=== PATIENT | female | born 1990 | race Caucasian/White ===

== ENCOUNTER 2018-02-18 10:59 | Day surgery (SDC) | payer OTHER, SELFPAY ==
[2018-02-18 11:19] LABS: Internal QC Validated? YES +Cl - CLEAR BKGD
[2018-02-18 11:23] LABS: Pregnancy, Urine Negative Negative
[2018-02-18 11:25] VITALS: BP 108/90; PULSE 86; RESP 16; TEMP 37.1; O2SAT 100; BMI 45.4
--- NOTE | 2018-02-18 13:44 | PCM.OP.BLANK ---
Operative Report Date of Procedure: 02/18/18 Preoperative diagnosis: left Carpal tunnel syndrome Postoperative diagnosis: Same Title of operation: ,left Open carpal tunnel release Surgeon: Dr. Kevin Gregory Anesthesia: Local w mac Indications for surgery: Patient seen and evaluated in the office. Diagnosed with carpal tunnel syndrome. They have failed adequate nonoperative treatment. Due to persistent symptoms they wish to proceed with carpal tunnel release surgery appropriate informed consent was obtained and signed. Details of procedure: Patient was taken to the OR and transferred to the OR table. Appropriate timeouts were performed. Well-padded tourniquet was applied to the operative upper extremity proximally. Area was prepped with alcohol. IV sedation supplied by anesthesia staff. local anesthetic was administered using 9 cc of 2% lidocaine plain. Operative extremity was prepped padded and draped in usual orthopedic sterile fashion for the procedure. Limb was exsanguinated. Tourniquet applied to 250 mmHg. Three centimeter incision was made over the palm. Carefully taken through skin, subcutaneous tissue, down onto the transverse carpal ligament. Transverse carpal ligament was opened at the midportion with a knife. Elevator was carefully placed underneath the transverse carpal ligament in a distal direction. I dissected down onto that with a knife. Elevator was then placed in a proximal direction, again directly underneath the transverse carpal ligament. I dissected down on that with a knife. Scissors were used at the proximal extent placed under direct visualization. This fully released the proximal extent of the transverse carpal ligament. At this point my small finger was placed proximally and distally to assure complete release of the transverse carpal ligament over the median nerve. FPL tendon was noted. No significant abnormalities were noted at the region of the carpal canal. Tourniquet was let down. Bleeding controlled with the Bovie. Wound thoroughly irrigated. No undue bleeding noted. Skin edges were reapproximated with a 5-0 nylon. Sterile bandage was applied. Patient was awoken from the anesthetic. Transferred to the room bed. To recovery room in satisfactory condition. Patient will be discharged home. Ice and elevation recommended. Pain medication as needed. Follow-up in the office next week as scheduled. This note was generated with Wisecam dictation software. It may contain incorrect words, spelling, and punctuation that were not noted in checking the note before signing.
[2018-02-18 13:50] VITALS: BP 108/90; BP 128/74; PULSE 96; RESP 18; TEMP 36.6; O2SAT 95
[2018-02-18 13:55] VITALS: BP 108/90; BP 131/64; PULSE 90; RESP 18; O2SAT 96
[2018-02-18 14:00] VITALS: BP 108/90; BP 123/67; PULSE 83; RESP 18; O2SAT 96
[2018-02-18 14:05] VITALS: BP 108/90; BP 132/77; PULSE 79; RESP 18; TEMP 36.5; O2SAT 96
[2018-02-18 14:20] VITALS: BP 108/90
== END 2018-02-18 14:50 | disposition home or self-care (01) ==
LOC: SDC 11:00 → AC 11:03
PROVIDERS: Visit Provider Orthopaedic Surgery
PROC: (CPT 64721; principal; 2018-02-18 12:15)
DX: G56.02 Carpal tunnel syndrome, left upper limb (principal); E66.9 Obesity, unspecified; Z68.42 Body mass index [BMI] 45.0-49.9, adult; Z79.891 Long term (current) use of opiate analgesic
CPT/HCPCS: 01810; 64721; 81025; J7120

== ENCOUNTER → 2019-07-03 11:39 | Outpatient (CLI) | payer OTHER, SELFPAY ==
[2019-06-07 16:29] VITALS: BMI 47.9
== END ==
PROVIDERS: Visit Provider Obstetrics & Gynecology
DX: Z12.4 Encounter for screening for malignant neoplasm of cervix (principal)

== ENCOUNTER → 2020-06-13 09:04 | Outpatient (CLI) | payer OTHER, SELFPAY ==
[2020-06-13 08:58] VITALS: BMI 47.9
[2020-06-13 09:59] LABS: HIV - WCH Non-Reactive (Nonreactive)
[2020-06-14 20:07] LABS: HCV Quant. RNA PCR HCV Not Detected IU/mL (.)
[2020-06-14 22:45] LABS: HSV 2 IgG < 0.91 index (0.00-0.90)
[2020-06-18 03:06] LABS: Chlamydia By Nucleic Acid AMP Negative (Negative)
[2020-06-18 09:41] LABS: Gonococcus By Nucleic Acid AMP Negative (Negative)
[2020-06-20 04:30] LABS: Rapid Plasmin Reagin (RPR) NONREACTIVE (NONREACTIVE)
== END ==
PROVIDERS: Referring Provider Obstetrics & Gynecology; Visit Provider Obstetrics & Gynecology
DX: Z11.3 Encounter for screening for infections with a predominantly sexual mode of transmission (principal)
CPT/HCPCS: 36415; 86592; 86695; 86696; 86703; 87491; 87522; 87591

== ENCOUNTER → 2020-06-21 06:16 | Outpatient (CLI) | payer OTHER, SELFPAY ==
[2020-06-13 08:58] VITALS: BMI 47.9
[2020-06-21 09:14] LABS: Vitamin D,25 Hydroxy 36.5 ng/mL
== END ==
PROVIDERS: Referring Provider Obstetrics & Gynecology; Visit Provider Obstetrics & Gynecology
DX: Z13.1 Encounter for screening for diabetes mellitus (principal); Z13.220 Encounter for screening for lipoid disorders; Z13.21 Encounter for screening for nutritional disorder
CPT/HCPCS: 36415; 82306

== ENCOUNTER → 2021-07-11 07:30 | Outpatient (CLI) | payer OTHER, SELFPAY ==
--- NOTE | 2021-07-11 07:31 | US_ITS ---
STUDY: ULTRASOUND TRANSVAGINAL CLINICAL: Female, 30 years old. IUD strings lost TECHNIQUE: Transvaginal COMPARISON: 01/09/2016 FINDINGS: Normal uterine size measuring 7.9 x 4.6 x 3.5 cm in maximal craniocaudal dimension. There are no myometrial masses. IUD within the fundal endometrial canal. Normal endometrial thickness measuring 4-5 mm. There are no endometrial masses, and there is no fluid in the endometrial cavity. Normal uterine cervix. Normal right ovary, measuring 3.5 x 3.2 x 2.7 cm. There are multiple follicles without a dominant cyst. Normal left ovary, measuring 2.9 x 2.7 x 2.1 cm. There are multiple follicles without a dominant cyst. There is no free fluid in the pelvis. US/Pelvic (Non ) IMPRESSION: IUD within the endometrial canal. Electronically Signed: Hany Lomeli MD (Brooks) at 9:18 EDT , Service support ,
--- NOTE | 2021-07-11 07:31 | US_ITS ---
STUDY: ULTRASOUND TRANSVAGINAL CLINICAL: Female, 30 years old. IUD strings lost TECHNIQUE: Transvaginal COMPARISON: 01/09/2016 FINDINGS: Normal uterine size measuring 7.9 x 4.6 x 3.5 cm in maximal craniocaudal dimension. There are no myometrial masses. IUD within the fundal endometrial canal. Normal endometrial thickness measuring 4-5 mm. There are no endometrial masses, and there is no fluid in the endometrial cavity. Normal uterine cervix. Normal right ovary, measuring 3.5 x 3.2 x 2.7 cm. There are multiple follicles without a dominant cyst. Normal left ovary, measuring 2.9 x 2.7 x 2.1 cm. There are multiple follicles without a dominant cyst. There is no free fluid in the pelvis. US/Transvaginal Non- IMPRESSION: IUD within the endometrial canal. Electronically Signed: Hany Lomeli MD (Brooks) at 9:18 EDT , Service support ,
== END ==
PROVIDERS: Referring Provider Obstetrics & Gynecology; Visit Provider Obstetrics & Gynecology
DX: T83.32XA Displacement of intrauterine contraceptive device, initial encounter (principal); Y83.8 Other surgical procedures as the cause of abnormal reaction of the patient, or of later complication, without mention of misadventure at the time of the procedure; Y92.9 Unspecified place or not applicable
CPT/HCPCS: 76830; 76856

== ENCOUNTER 2022-02-24 12:31 | Day surgery (SDC) | payer OTHER, SELFPAY ==
[2022-02-24] VITALS (7 sets, daily range): BP systolic 116–138; BP diastolic 69–89; PULSE 78–96; RESP 16–18; TEMP 36.1–37.3; O2SAT 96–100; BMI 41.7
[2022-02-24 13:33] LABS: Hematocrit 37.9 % (37-47); Hemoglobin 12.6 g/dL (12.0-15.0); Mean Corp Hgb Conc 33.2 g/dL (32-36); Mean Corpuscular Volume 84.2 fL (81-99); Mean Platelet Vol. 8.8 fl (6.2-12.0); Platelet Count 237 K/mm3 (150-450); RBC Distribution Width CV 13.2 % (11.6-14.6); RBC Distribution Width SD 40.8 fl (35.1-43.9); White Blood Count 6.8 K/mm3 (4.4-11.0)
[2022-02-24 13:36] LABS: Internal QC Validated? YES +Cl - CLEAR BKGD; Pregnancy, Urine Negative Negative
[2022-02-24] MEDS: Lactated Ringers 1,000 ML 15 ML IV (13:38)
--- NOTE | 2022-02-24 14:39 | PCM.HP.BLA ---
History and Physical Date of Admission: 02/24/22 MR#:[id number]:[id number]: SVEN DAVIS #:[id number]:1990 Provider: ROSALIO Martinez/Sex: 31/F [facility] Int[place] Vital Signs 02/11/22 12:54 Height 5 ft 6 in Weight: 301 lb BMI 48.6 BP 120/82 H Intake Visit Reasons: MIRENA REMOVAL Chief Complaint: mirena removal only Crusher Wet [place] Mica Required: No Is patient in pain?: No Allergies No Known Allergies Allergy (Verified 06/13/20 08:17) Medications vitamin#30 30 mg iron-10 mg iron-folic acid 1 mg-omg3 capsule cap PO 02/11/22 [History Confirmed 02/11/22] Is last menstrual period known: No Post menopausal: No Patient : No : No [facility] Medical History Breast abscess Carpal tunnel syndrome MRSA (methicillin resistant Staphylococcus aureus) Surgical History History of incision and drainage Family History Unknown Cancer Father Cancer testicular germ cell Myocardial infarction Social History Smoking Status: Never smoker alcohol intake: never substance use type: does not use caffeine: Yes seatbelt use: always do you feel safe at home: Yes additional social history: [facility]- to [place] HPI MIRENA REMOVAL Details: SVEN DAVIS is a 31 year old who presents for IUD removal. Wants Pregancy History 0 Elective abortions Hx Para Spontaneous abortions Hx # Term Pregnancies Ectopic pregnancies Hx # Pregnancies Multiple births # of living children ROS Const Constitutional: Reports system reviewed and no additional complaints, except as documented Eyes Eyes: Reports system reviewed and no additional complaints, except as documented GI GI: Denies abdominal pain or change in bowel habits : Reports as per HPI Exam Const General: cooperative and no acute distress Orientation: oriented x3 External Female Exam: normal external appearance and normal appearance of the urethra Urethra: normal appearance of the urethra Speculum Exam - Vagina: normal appearance of the vagina Speculum Exam - Cervix: normal appearance of the cervix Office Procedures IUD Removal IUD Removal Details: Sign out documentation: Completed Procedure: Speculum placed in vagina, IUD string was not visualized. The cervix was cleansed with betadine and grasped with a single-toothed tenaculum and using a long Ksenia forceps device, removal was attempted with multiple passes without success. The patient tolerated well. We will plan hysteroscopic removal in the OR. Coding Level of Care Code Attention Rubber Heel And Sole Press Tender Diagnoses IUD strings lost T83.32XA Assessment and Plan Assessment and Plan (1) IUD strings lost: Status: Acute Plan - Dr. Raven Cardona, DO: ultrasound confirmed the IUD in place but will need hysteroscopic removal. plan for hysteroscopy soon. will call patient when set up in the OR. Plan - Maya Joyner TEXTILE CONVERSION MANAGER, TEXTILE CONVERSION MANAGER-C: as above Plan Details Other Orders: Orders: IUD Removal Today Z30.432
--- NOTE | 2022-02-24 14:40 | PCM.DC ---
Discharge Instructions Diet Discharge Diet: No restrictions Activity Discharge Activity: Return to Normal Activity, May Shower and May Take a Tub Bath (after 1 week) May resume sexual activity in: 1-2 weeks Weight Bearing Status: Weight bearing as tolerated Lifting Restrictions: none Dressing / Incision Call your doctor if you observe: Fever of 101 or Higher, Using more than 1 pad per hour, Shortness of breath and Uncontrolled pain Follow Up Care Please Follow Up With: Raven Cardona DO When: Call [phone] to schedule appointment. Test Results: Test results from this visit will be discussed in further detail at your follow-up appointment, if applicable. Discharge Plan Admission Primary Reason for Your Visit: hysteroscopy Attending Provider: Raven Cardona Primary Care Provider: Care Idania Purcell Primary Discharge Orders/Prescriptions Prescriptions: New ibuprofen 800 mg tablet 800 mg PO Q8H PRN (Reason: pain) 7 Days Qty: 20 RF: 0 oxycodone-acetaminophen [Percocet] 5-325 mg tablet 1 tab PO Q6H PRN (Reason: pain) 3 Days Qty: 5 RF: 0 ibuprofen 600 mg tablet 600 mg PO Q6H PRN (Reason: pain) 7 Days Qty: 28 RF: 0 Continued PNV #[id number] 30 mg iron-10 mg iron-1 mg capsule 1 cap PO DAILY RF: 0 Referrals / Follow Up: Care Physician,Idania Primary [Primary Care Provider] - Disposition Disposition (needs filled in before D/C Order can be placed): Home, Self Care
[2022-02-24] MEDS: Lidocaine 1% (50 ml mdv) 50 ML Vial (14:58)
--- NOTE | 2022-02-24 15:26 | PCM.OPRPT ---
Problems Associated Problem List Diagnoses (1) IUD strings lost: Report of Operation Date of Procedure: 02/24/22 Pre-Operative Diagnosis: retained IUD, unable to remove in office Post-Operative Diagnosis: retained IUD, unable to remove in office Surgery/Procedure Performed:: hysteroscopy, IUD removal Description of Surgical Findings:: IUD noted in the right upper fundal region of the uterus, non-embedded. Surgeon: Raven Cardona supervisor paper testing: None Type of Anesthesia: MAC/Supplemental/Local Specimen's removed: IUD Drains: none Estimated Blood Loss (mL): none Description of Procedure: Patient was prepped and draped in a normal sterile fashion under MAC anesthesia. A weighted speculum was placed in the vagina and the anterior lip of the cervix was grasped with a single-tooth tenaculum. A paracervical block was placed with 1% lidocaine. Cervix was progressively dilated to allow passage of a 5 mm hysteroscope. The lining was fully visualized and noted to have the IUD up at the left fundal region. The strings were found and with the use of the hysteroscopic instruments, the strings were grasped and the device removed without difficulty. All instruments were removed from the vagina and excellent hemostasis was noted. Patient was awoken and taken to recovery in stable condition. Complications none Admit VTE Documentation VTE Present on Admission: Yes VTE Mechan Device Prophylaxis: SCD's VTE Pharm Prophylaxis ordered?: No Reason prophylaxis not ordered:: Treatment Not Indicated Multi Select Codes Urinary/Genital Urinary/Genital CPT Codes: 41778 Hysteroscopic removal of FB
== END 2022-02-24 16:03 | disposition home or self-care (01) ==
LOC: SDC 12:33 → AC 12:40
PROVIDERS: Referring Provider Obstetrics & Gynecology; Visit Provider Obstetrics & Gynecology
PROC: 0UDB8ZZ Extraction of Endometrium, Via Natural or Artificial Opening Endoscopic (ICD-10-PCS; CPT 58558; principal; 2022-02-24 14:30)
DX: Z30.432 Encounter for removal of intrauterine contraceptive device (principal); T83.89XA Other specified complication of genitourinary prosthetic devices, implants and grafts, initial encounter; Y83.8 Other surgical procedures as the cause of abnormal reaction of the patient, or of later complication, without mention of misadventure at the time of the procedure
CPT/HCPCS: 58301; 81025; 85027; J7120; J2405

== ENCOUNTER → 2022-08-15 | Outpatient (CLI) | payer OTHER, SELFPAY ==
[2022-08-15 11:27] LABS: hCG Titer Quant., Serum 1461 mIU/mL (1-3)
== END | disposition home or self-care (01) ==
LOC: LAB 10:10
PROVIDERS: Visit Provider Obstetrics & Gynecology
DX: N91.2 Amenorrhea, unspecified (principal)
CPT/HCPCS: 36415; 84702

== ENCOUNTER → 2022-09-23 | Outpatient (CLI) | payer OTHER, SELFPAY ==
[2022-09-25 06:08] LABS: Chlamydia By Nucleic Acid AMP Negative (Negative)
[2022-09-25 10:43] LABS: Gonococcus By Nucleic Acid AMP Negative (Negative)
== END | disposition home or self-care (01) ==
LOC: LABSPEC 12:17
PROVIDERS: Visit Provider Obstetrics & Gynecology
DX: Z34.90 Encounter for supervision of normal pregnancy, unspecified, unspecified trimester (principal)
CPT/HCPCS: 87086; 87088; 87491; 87591

== ENCOUNTER → 2022-10-02 | Outpatient (CLI) | payer OTHER, SELFPAY ==
[2022-10-02 09:11] LABS: Absolute Lymphocyte Count 1.61 X10^3/uL (0.83-4.51); Absolute Neutrophil Count 5.2 X10^3/uL (2.0-7.7); Basophil# 0.02 X10^3/uL; Basophil% 0.3 % (0-1); Eosinophil# 0.06 X10^3/uL; Eosinophils% 0.8 % (0-5); Hematocrit 32.3 % (37-47); Hemoglobin 10.6 g/dL (12.0-15.0); Lymphocyte # 1.61 X10^3/ul (0.83-4.51); Lymphocyte % 22.4 % (19-41); Mean Corp Hgb Conc 32.8 g/dL (32-36); Mean Corpuscular Hgb 27.6 pg (27.0-32.0); Mean Corpuscular Volume 84.1 fL (81-99); Mean Platelet Vol. 8.9 fl (6.2-12.0); Monocyte# 0.29 X10^3/uL; NRBC Flagged by Analyzer 0 % (0-5); Neutrophil # 5.17 X10^3/uL (2.7-7.7); Neutrophil % 71.9 % (47-70); Platelet Count 210 K/mm3 (150-450); RBC Distribution Width SD 42.7 fl (35.1-43.9); Red Blood Count 3.84 M/mm3 (4.2-5.4); White Blood Count 7.2 K/mm3 (4.4-11.0)
[2022-10-02 09:36] LABS: Glucose Challenge Gest 1H 50g 118 mg/dL (70-140)
[2022-10-02 10:16] LABS: HIV - WCH Non-Reactive (Nonreactive); Hepatitis B Surface Antigen Non-Reactive (Nonreactive); Hepatitis C Antibody Non-Reactive (Nonreactive); Rubella IgG Reactive (Nonreactive); Syphilis Antibodies Non-reactive
== END | disposition home or self-care (01) ==
LOC: LAB 08:32
PROVIDERS: Referring Provider Obstetrics & Gynecology; Visit Provider Obstetrics & Gynecology
DX: Z34.91 Encounter for supervision of normal pregnancy, unspecified, first trimester (principal); Z3A.10 10 weeks gestation of pregnancy
CPT/HCPCS: 36415; 82950; 85025; 86703; 86762; 86780; 86803; 86850; 86900; 86901; 87340

== ENCOUNTER → 2022-10-20 | Outpatient (CLI) | payer OTHER, SELFPAY ==
--- NOTE | 2022-10-20 11:20 | RAD_ITS ---
STUDY: X-RAY - LEFT KNEE REASON FOR EXAM: Female, 32 years old. Left knee pain TECHNIQUE: 4 view(s) of the knee. COMPARISON: None. FINDINGS: Normal visualized distal femur. Normal visualized proximal tibia and fibula. Normal proximal tibiofibular articulation. Normal medial femorotibial compartment. Normal lateral femorotibial compartment. Normal patellofemoral articulation. The soft tissue structures are unremarkable. RAD/Knee 4 or More Views IMPRESSION: Normal x-ray examination of the knee. Electronically Signed: Jez Christianson MD at 12:05 EST ,
== END | disposition home or self-care (01) ==
LOC: MTRAD 11:18
PROVIDERS: Referring Provider Physician Assistant Surgical; Visit Provider Physician Assistant Surgical
DX: S86.912A Strain of unspecified muscle(s) and tendon(s) at lower leg level, left leg, initial encounter (principal); X58.XXXA Exposure to other specified factors, initial encounter
CPT/HCPCS: 73564

== ENCOUNTER → 2022-11-19 | Outpatient (CLI) | payer OTHER, SELFPAY ==
--- NOTE | 2022-11-19 15:21 | US_ITS ---
STUDY: SECOND AND THIRD TRIMESTER OBSTETRICAL ULTRASOUND REASON FOR EXAM: Female, 32 years old Anatomy scan LMP: 07/09/2022. TECHNIQUE: Transabdominal and Transvaginal TECHNICAL QUALITY: Adequate. PRIOR ULTRASOUND: None. FINDINGS: There is a single intrauterine fetus. The fetus is in a cephalic presentation. There is demonstrated cardiac activity with a heart rate of 136 bpm. There is a normal amniotic fluid volume. The largest amniotic fluid pocket measures 3.9 cm x 4.6 cm. The amniotic fluid index (ISATU) is within normal limits. The placenta is anterior in location and is not low lying. There are Grade 1 placental changes. The cervix measures 3.7 cm in length. The bilateral adnexal regions are normal. BIOMETRY: BPD: 4.19 cm: 18 weeks, 5 days HC: 15.68 cm: 18 weeks, 4 days AC: 14.79 cm: 20 weeks, 0 days FL: 2.98 cm: 19 weeks, 1 days CI: 81.3 FL/BPD: 71.11 FL/HC: FL/AC: 20.16 HC/AC: 1.06 age by current US: 18 weeks, 4 days. BE by current US: 04/18/2023. Estimated weight: 300 grams, +/- 45 grams, 78 %. Age by LMP: 19 weeks, 0 days. BE by LMP: 04/15/2023. ANATOMY: Gender: Female Cranium: Normal lateral ventricles. Normal choroid plexus. Normal cerebellum. Normal cisterna magna. Normal face, nose and lips. Chest: Normal 4-chamber heart. Abdomen/Pelvis: Normal diaphragm. Normal stomach. Normal abdominal wall. Normal cord insertion. Normal 3 vessel cord. Normal kidneys. Normal bladder. Spine: Normal cervical spine. Normal thoracic spine. Normal lumbar spine. Normal sacrum. Extremities: Normal bilateral upper extremities. Normal bilateral lower extremities. US/OB Anatomy Scan IMPRESSION: Single live intrauterine gestation with a mean gestational age of 18 weeks and 4 days. Electronically Signed: Jez Christianson MD at 15:19 EST ,
== END | disposition home or self-care (01) ==
LOC: OPUS 15:18
PROVIDERS: Visit Provider Nurse Practitioner Women's Health
DX: Z34.90 Encounter for supervision of normal pregnancy, unspecified, unspecified trimester (principal)
CPT/HCPCS: 76805; 76817

== ENCOUNTER → 2023-01-21 | Outpatient (CLI) | payer OTHER, SELFPAY ==
[2023-01-21 11:11] LABS: Absolute Lymphocyte Count 1.41 X10^3/uL (0.83-4.51); Absolute Neutrophil Count 6.1 X10^3/uL (2.0-7.7); Basophil# 0.03 X10^3/uL; Basophil% 0.4 % (0-1); Eosinophil# 0.03 X10^3/uL; Eosinophils% 0.4 % (0-5); Hematocrit 30.2 % (37-47); Hemoglobin 9.2 g/dL (12.0-15.0); Lymphocyte # 1.41 X10^3/ul (0.83-4.51); Lymphocyte % 17.7 % (19-41); Mean Corp Hgb Conc 30.5 g/dL (32-36); Mean Corpuscular Hgb 26.2 pg (27.0-32.0); Mean Platelet Vol. 9.2 fl (6.2-12.0); Monocyte# 0.33 X10^3/uL; Monocyte% 4.2 % (0-10); NRBC Flagged by Analyzer 0 % (0-5); Neutrophil # 6.09 X10^3/uL (2.7-7.7); Neutrophil % 76.5 % (47-70); Platelet Count 172 K/mm3 (150-450); RBC Distribution Width CV 15.2 % (11.6-14.6); RBC Distribution Width SD 47.4 fl (35.1-43.9); Red Blood Count 3.51 M/mm3 (4.2-5.4)
[2023-01-21 11:34] LABS: Glucose Challenge Gest 1H 50g 112 mg/dL (70-140)
[2023-01-21 12:00] LABS: HIV - WCH Non-Reactive (Nonreactive); Syphilis Antibodies Non-reactive
== END | disposition home or self-care (01) ==
LOC: LAB 10:42
PROVIDERS: Referring Provider Obstetrics & Gynecology; Visit Provider Obstetrics & Gynecology
DX: O09.90 Supervision of high risk pregnancy, unspecified, unspecified trimester (principal)
CPT/HCPCS: 36415; 82950; 85025; 86703; 86780

== ENCOUNTER → 2023-01-22 | Outpatient (CLI) | payer OTHER, SELFPAY ==
[2023-01-22 10:36] LABS: ALB/GLOB Ratio 0.7 RATIO (0.9-2.4); AST(SGOT) 14 U/L (15-37); Alanine Aminotransfer ALT/SGPT 24 U/L (13-56); Albumin, Serum 2.7 g/dL (3.2-5.0); Alkaline Phosphatase 82 U/L (45-117); Anion Gap 3 (5-15); BUN 7 mg/dL (7-18); BUN/Creat Ratio 11.7 RATIO (10-20); Chloride 108 mmol/L (98-107); EST Glomerular Filtration Rate 122 mL/min (>60); Est Glom Filt Rate - Afr Amer 148 mL/min (>60); Globulin 3.8 g/dL (2.2-4.2); Glucose 104 mg/dL (74-106); Potassium 3.4 mmol/L (3.5-5.1); Protein, Total 6.5 g/dL (6.4-8.2); Sodium Level 136 mmol/L (136-145)
[2023-01-22 12:27] LABS: Ferritin 26 ng/mL (8-252); Iron 56 ug/dL (50-170); Iron Binding Capacity,Total 470 ug/dL (250-450); PERCENT IRON SATURATION 11.9 % (15.0-55.0)
[2023-01-22 15:00] LABS: Protein:Creat Ratio 205 mg/g CRE (0-200)
== END | disposition home or self-care (01) ==
PROVIDERS: Referring Provider Advanced Practice Midwife; Visit Provider Advanced Practice Midwife
DX: O10.919 Unspecified pre-existing hypertension complicating pregnancy, unspecified trimester (principal); D64.9 Anemia, unspecified; O99.011 Anemia complicating pregnancy, first trimester
CPT/HCPCS: 36415; 80053; 82570; 82728; 82746; 83540; 83550; 84156

== ENCOUNTER → 2023-01-27 | Outpatient (CLI) | payer OTHER, SELFPAY ==
[2023-01-27 17:53] LABS: Ferritin 30 ng/mL (8-252); Iron 43 ug/dL (50-170); Iron Binding Capacity,Total 505 ug/dL (250-450); PERCENT IRON SATURATION 8.5 % (15.0-55.0)
[2023-01-28 08:52] LABS: Vitamin B12 251 pg/mL (211-911)
== END | disposition home or self-care (01) ==
LOC: LAB 15:10
PROVIDERS: Obstetrics & Gynecology; Referring Provider Advanced Practice Midwife; Visit Provider Advanced Practice Midwife
DX: D64.9 Anemia, unspecified (principal)
CPT/HCPCS: 82607; 82728; 82746; 83021; 83540; 83550; 85660

== ENCOUNTER 2023-02-04 09:10 | Outpatient (CLI) | payer OTHER, SELFPAY ==
[2023-02-04 09:24] VITALS: BMI 57.3
[2023-02-04 09:57] LABS: Hematocrit 32.3 % (37-47); Hemoglobin 10.4 g/dL (12.0-15.0); Mean Corp Hgb Conc 32.2 g/dL (32-36); Mean Corpuscular Hgb 26.9 pg (27.0-32.0); Mean Corpuscular Volume 83.7 fL (81-99); Mean Platelet Vol. 8.9 fl (6.2-12.0); Platelet Count 176 K/mm3 (150-450); RBC Distribution Width CV 15.7 % (11.6-14.6); RBC Distribution Width SD 47.6 fl (35.1-43.9); Red Blood Count 3.86 M/mm3 (4.2-5.4); White Blood Count 8.6 K/mm3 (4.4-11.0)
[2023-02-04 10:02] LABS: Protein, Urine (Random) 9.9 mg/dL (<11.9); Protein:Creat Ratio 249 mg/g CRE (0-200)
[2023-02-04 10:06] LABS: AST(SGOT) 13 U/L (15-37); Alanine Aminotransfer ALT/SGPT 19 U/L (13-56); Creatinine, Serum 0.65 mg/dL (0.55-1.02); EST Glomerular Filtration Rate 111 mL/min (>60); Est Glom Filt Rate - Afr Amer 134 mL/min (>60); Uric Acid 4.7 mg/dL (2.6-6.0)
--- NOTE | 2023-02-04 10:25 | US_ITS ---
STUDY: OBSTETRICAL ULTRASOUND - BIOPHYSICAL PROFILE REASON FOR EXAM: Female, 32 years old high bp LMP: July 09, 2022. PRIOR ULTRASOUND: Comparison is made with prior sonogram dated November 19, 2022. TECHNIQUE: Transabdominal TECHNICAL QUALITY: Adequate. FINDINGS: There is a single intrauterine fetus. The fetus is in a breech presentation. There is demonstrated cardiac activity with a heart rate of 143 bpm. There is a normal amniotic fluid volume. The largest amniotic fluid pocket measures 6.2 cm. The amniotic fluid index (ISATU) is 15.7 cm. The placenta is anterior in location and is not low lying. There are Grade 1 placental changes. Age by LMP: 30 weeks, 0 days. BE by LMP: April 15, 2023. age by prior US: 29 weeks, 4 days. BE by prior US: April 18, 2023. Gender: Female BIOPHYSICAL PROFILE: Breathing Movements (FBM): 2 Gross Body Movements (GBM): 2 Tone (FT): 2 Amniotic Fluid Volume (AFV): 2 TOTAL SCORE: 8 / 8 US/Biophysical Prof W/O Non Stres IMPRESSION: Normal biophysical profile of 8/8. Electronically Signed: Jez Christianson MD at 12:01 EDT ,
--- NOTE | 2023-02-04 19:40 | OB.TRI.HP_ITS ---
HPI - General HPI Narrative SVEN ANNA, is a 32 F who presents to L&D for testing due to chronic hypertension in . THe nurses were given ordered to perform a BPP if the NST was unattainable and to order PIH labs. Maternal Data Information BE Calculator Estimated Delivery Date Method Current WG Current Estimate 04/15/23 LMP (Certain) 32w 1d Other Estimates 04/16/23 Ultrasound #1 32w 0d PFSH PFSH Medical History Alcohol use Anemia Breast abscess Carpal tunnel syndrome History of edema IUD strings lost Migraine headache Non-smoker Status post hysteroscopy Strain of left knee Home Medications vitamin#30 30 mg iron-10 mg iron-folic acid 1 mg-omg3 capsule 1 cap PO DAILY 02/11/22 [History Last Taken Unknown] ondansetron HCl 4 mg tablet 4 mg PO Q8H PRN nausea and vomiting #30 tabs 10/17/22 [Rx Last Taken Unknown] blood pressure monitor (Blood Pressure Kit) #1 ea 01/22/23 [Rx Last Taken Unknown] ferrous sulfate 325 mg (65 mg iron) tablet (Feosol) 325 mg PO DAILY 01/22/23 [History Last Taken Unknown] nifedipine 60 mg tablet,extended release 24 hr (Procardia XL) 60 mg PO DAILY 30 days #30 tabs 02/02/23 [Rx Last Taken Unknown] Allergy/AdvReac Type Severity Reaction Status Date / Time No Known Allergies Allergy Verified 02/18/23 09:20 Family History Unknown Cancer Father Cancer testicular germ cell Myocardial infarction Surgical History History of carpal tunnel release of both wrists History of incision and drainage History of tonsillectomy Social History adopted: No household members: spouse housing: house current occupational status: employed current occupation: [employer] current occupational exposures/hazards: No pets and animals: Yes (Not managing litter box) pets and animals: cat(s) and dog(s) history of recent travel: No sexually active: Yes Smoking Status: Never smoker alcohol intake: never substance use type: does not use well-balanced diet: daily or most days caffeine: Yes Type: carbonated beverages Number of servings: 1 eating out: 1-3 times/week during the past year weight has: increased > 10 lbs what type of physical activity do you participate in: walking frequency: 3-4 times per week duration: 15-30 minutes/day ashley/christianity: Druze seatbelt use: always do you feel safe at home: Yes additional social history: [facility]- to [employer] History 1 Elective abortions Hx Para 0 Spontaneous abortions Hx # Term Pregnancies Ectopic pregnancies Hx # Pregnancies Multiple births # of living children Visit Details Expected Delivery Route/Plan Labor Preferences- CB/BF classes: [] labor support person: [] labor intervention preferences: [] pain management options preferred: [] cut cord/dad catch: [] : [] PP control planned: [] discussed possible routes of delivery and associated risks: [] special requests: [] Plans Covid status: [] Flu vaccine: [] Tdap vaccine: [] Rhogam: [] LARC form signed: [] Problem list reviewed and updated with the most current plan of care details and appropriate orders placed. Relevant counseling for the gestational age provided. Continue routine care and follow up unless otherwise noted in visit notes/problem list details OB Flowsheet Initial Weight: 320 lb Date -?-?-?-?-?-?-?-?-?-?-?-?- EGA Weight BP Urine Prot -?-?-?-?-?-?-?-?-?-?-?-?- Glucose FHR FuHt Pres Dilation -?-?-?-?-?-?-?-?-?-?-?-?- Effaced St Visit Note 09/23/22 -?-?-?-?-?-?-?-?-?-?-?-?- 10w 6d 320 lb (+0 oz) 142/89 -?-?-?-?-?-?-?-?-?-?-?-?- 189 -?-?-?-?-?-?-?-?-?-?-?-?- JV- single live IUP consistent with LMP. 10/20/22 -?-?-?-?-?-?-?-?-?-?-?-?- 14w 5d 317 lb 2 oz (-2 lb 14 oz) 134/82 Negative -?-?-?-?-?-?-?-?-?-?-?-?- Negative 162 -?-?-?-?-?-?-?-?-?-?-?-?- MH-No VB. Review ed PNL. Taking Fe daily. Vladimir helping nausea. Tearful today- hurt knee bowling, going [facility] after this 11/16/22 -?-?-?-?-?-?-?-?-?-?-?-?- 18w 4d 322 lb (+2 lb) 138/72 Negative -?-?-?-?-?-?-?-?-?-?-?-?- Negative 154 -?-?-?-?-?-?-?-?-?-?-?-?- LC-no vb/crampin g. s/p medrol pack for knee pain. has anatomy scheduled for 11/19. discussed and declines afp 12/16/22 -?-?-?-?-?-?-?-?-?-?-?-?- 22w 6d 329 lb 8 oz (+9 lb 8 oz) 130/76 Negative -?-?-?-?-?-?-?-?-?-?-?-?- Negative 147 -?-?-?-?-?-?-?-?-?-?-?-?- JV- normal anato my scan. 28 weeks labs discussed 01/22/23 -?-?-?-?-?-?-?-?-?-?-?-?- 28w 1d 333 lb (+13 lb) 150/80 Negative -?-?-?-?-?-?-?-?-?-?-?-?- Negative 145 -?-?-?-?-?-?-?-?-?-?-?-?- KW-feeling flutt ers, no cramping. Redraw CBC in 4 weeks. KW-feeling flutters, no cram ping. Redraw CBC in 4 weeks. Baseline Pre E labs today KW-feeling flutters, no cram ping. Redraw CBC in 4 weeks. Baseline Pre E labs today. NSTs scheduled starting at 32 weeks. Growth US at 32 & 36 weeks. Tdap done and LARC signed. 02/04/23 -?-?-?-?-?-?-?-?-?-?-?-?- 30w 0d 335 lb 6 oz (+15 lb 6 oz) 138/82 Negative -?-?-?-?-?-?-?-?-?-?-?-?- Negative 144 -?-?-?-?-?-?-?-?-?-?-?-?- JV- procardia 60 xl now working well. suspect chhtn based on first bp level. needs iron infusion and hoping they can do some PIH labs for us when she goes down there. if not able to then will order outpatient labs. 02/18/23 -?-?-?-?-?-?-?-?-?-?-?-?- 32w 0d 339 lb 4 oz (+19 lb 4 oz) 144/78 Negative -?-?-?-?-?-?-?-?-?-?-?-?- Negative 145 33 -?-?-?--?-?-?-?-?-?-?-?-?- JV- BPP today wa s 05/11. likely move to weekly bpp with NST at 36 weeks. bp much better and infusion was given last week. ROS Constitutional Constitutional: Reports systems reviewed and no addt'l complaints, except as documented Gastrointestinal Gastrointestinal: Denies bloating, constipation, cramping, diarrhea, nausea or vomiting Genitourinary Genitourinary: Reports other Details: Denies vaginal odor, vaginal bleeding, or vaginal discharge ; Denies difficulty urinating or flank pain NST FHR Rate Baby A Baseline: 140 Variability:: Moderate Accelerations:: 10 x 10 Decelerations:: None NST Reactive:: Yes (unable to assess due to difficulty in obtaining full strip ) FHR Category:: Category I Uterine Activity:: none Assessment & Plan (1) Chronic hypertension affecting : COMMENT: BPP weekly starting 32 weeks Growth US at 32 and 36 weeks Home BP cuff- check BP 2x daily call in one week with BPs- bp's 150's/09's-100 starting procardia XL 30 and continue bp's at home may need increase (2) Anemia: COMMENT: recheck CBC 4 weeks (02/19) (3) Supervision of high risk , antepartum: COMMENT: [id number], BE 04/15/23 girl Cristina [place] (4) : QUALIFIERS: Weeks of gestation: 32 weeks Qualified Code(s): Z3A.32 - 32 weeks gestation of COMMENT: DOC ONLY discussed genetic & carrier testing, nl anatomy (5) Morbid obesity: COMMENT: discussed healthy lifestyle changes. PLAN: Plan BPP was 05/11 and PIH labs are stable. dc to home and continue weekly nsts Charges/Coding Multi Select Codes Visit Charges Office Visit/Consults: [id number] OV L3 Est
== END 2023-02-04 10:45 | disposition home or self-care (01) ==
LOC: WPOUT 09:14 → WP 09:14
PROVIDERS: Obstetrics & Gynecology; Referring Provider Obstetrics & Gynecology; Visit Provider Obstetrics & Gynecology
DX: O16.3 Unspecified maternal hypertension, third trimester (principal); E66.01 Morbid (severe) obesity due to excess calories; O99.013 Anemia complicating pregnancy, third trimester; O09.93 Supervision of high risk pregnancy, unspecified, third trimester; O99.213 Obesity complicating pregnancy, third trimester; Z3A.32 32 weeks gestation of pregnancy
CPT/HCPCS: 36415; 76819; 82565; 82570; 84156; 84450; 84460; 84550; 85027

== ENCOUNTER 2023-02-09 08:59 | Outpatient (CLI) | payer OTHER, SELFPAY ==
[2023-02-09] MEDS: 0.9% NaCl Peripheral Flush Adult/Peds IV (09:18)
[2023-02-09 09:22] VITALS: BP 146/82; PULSE 98; RESP 18; TEMP 36.6; O2SAT 96; BMI 56.6
[2023-02-09 11:59] VITALS: BP 142/76; PULSE 97; RESP 16; TEMP 36.8; O2SAT 96
== END 2023-02-09 09:00 | disposition home or self-care (01) ==
LOC: MEDOUTP 08:59
PROVIDERS: Referring Provider Obstetrics & Gynecology; Visit Provider Obstetrics & Gynecology
DX: D64.9 Anemia, unspecified (principal)
CPT/HCPCS: 96365; 96366; J1756; J7050; A4216

== ENCOUNTER → 2023-02-11 | Outpatient (CLI) | payer OTHER, SELFPAY ==
--- NOTE | 2023-02-11 16:58 | US_ITS ---
STUDY: OBSTETRICAL ULTRASOUND - BIOPHYSICAL PROFILE REASON FOR EXAM: Female, 32 years old well being LMP: PRIOR ULTRASOUND: None. TECHNIQUE: Transabdominal TECHNICAL QUALITY: Adequate. FINDINGS: There is a single intrauterine fetus. The fetus is in a breech presentation. There is demonstrated cardiac activity with a heart rate of 148 bpm. There is a normal amniotic fluid volume. The largest amniotic fluid pocket measures 3.2 x 3.7 cm. The amniotic fluid index (ISATU) is 14.76 cm. The placenta is anterior There are Grade 1 placental changes. Age by LMP: 31 weeks, 0 days. BE by LMP: April 15, 2023. BIOPHYSICAL PROFILE: Breathing Movements (FBM): 2 Gross Body Movements (GBM): 2 Tone (FT): 2 Amniotic Fluid Volume (AFV): 2 TOTAL SCORE: US/Biophysical Prof W/O Non Stres IMPRESSION: Normal biophysical profile of 05/11. Electronically Signed: Lasha Pollock MD at 17:36 EDT ,
== END | disposition home or self-care (01) ==
LOC: US 16:56
PROVIDERS: Referring Provider Obstetrics & Gynecology; Visit Provider Obstetrics & Gynecology
DX: O10.919 Unspecified pre-existing hypertension complicating pregnancy, unspecified trimester (principal)
CPT/HCPCS: 76819

== ENCOUNTER 2023-02-16 09:05 | Outpatient (CLI) | payer OTHER, SELFPAY ==
[2023-02-16 09:46] VITALS: BP 127/82; PULSE 78; RESP 16; TEMP 35.9; O2SAT 98
[2023-02-16] MEDS: 0.9% NaCl Peripheral Flush Adult/Peds IV (09:49)
[2023-02-16] MEDS: 0.9% NaCl IVPB Med Flush (250 mL) 15 ML IV (09:49)
[2023-02-16 11:30] VITALS: BP 120/70; PULSE 90
== END 2023-02-16 09:06 | disposition home or self-care (01) ==
LOC: MEDOUTP 09:05
PROVIDERS: Referring Provider Obstetrics & Gynecology; Visit Provider Obstetrics & Gynecology
DX: D64.9 Anemia, unspecified (principal)
CPT/HCPCS: 96365; 96366; J1756; J7050; A4216

== ENCOUNTER → 2023-02-18 | Outpatient (CLI) | payer OTHER, SELFPAY ==
--- NOTE | 2023-02-18 07:59 | US_ITS ---
STUDY: OBSTETRICAL ULTRASOUND - BIOPHYSICAL PROFILE REASON FOR EXAM: Female, 32 years old chronic htn -- well being -- BPP and amp; growth 32 weeks LMP: July 09, 2022. PRIOR ULTRASOUND: Comparison is made with prior study dated February 11, 2023. TECHNIQUE: Transabdominal TECHNICAL QUALITY: Adequate. FINDINGS: There is a single intrauterine fetus. The fetus is in a cephalic presentation. There is demonstrated cardiac activity with a heart rate of 147 bpm. There is a normal amniotic fluid volume. The largest amniotic fluid pocket measures 6.2 cm x 3.1 cm. The amniotic fluid index (ISATU) is 16.21 cm. The placenta is anterior in location and is not low lying. There are Grade 1 placental changes. Age by LMP: 32 weeks, 0 days. BE by LMP: April 15, 2023. age by prior US: 32 weeks, 6 days. BE by prior US: April 09, 2023. BIOPHYSICAL PROFILE: Breathing Movements (FBM): 2 Gross Body Movements (GBM): 2 Tone (FT): 2 Amniotic Fluid Volume (AFV): 2 TOTAL SCORE: 8 / 8 IMPRESSION: Normal biophysical profile of 8/8. Electronically Signed: Jez Christianson MD at 14:20 EDT , STUDY: SECOND AND THIRD TRIMESTER OBSTETRICAL ULTRASOUND - LIMITED REASON FOR EXAM: Female, 32 years old chronic htn -- well being -- BPP and amp; growth 32 weeks LMP: July 09, 2022 PRIOR ULTRASOUND: Comparison is made with prior study February 11, 2023. TECHNIQUE: Transabdominal TECHNICAL QUALITY: Adequate. FINDINGS: There is a single intrauterine fetus. The fetus is in a cephalic presentation. There is demonstrated cardiac activity with a heart rate of 147 bpm. There is a normal amniotic fluid volume. The largest amniotic fluid pocket measures 6.2 cm x 3.1 cm. The amniotic fluid index (ISATU) is 16.21 cm. The placenta is anterior in location and is not low lying. There are Grade 1 placental changes. The cervix measures 3.8 cm in length. BIOMETRY: BPD: 8.21 cm: 33 weeks, 0 days HC: 29.97 cm: 33 weeks, 2 days AC: 29.66 cm: 33 weeks, 4 days FL: 6.22 cm: 32 weeks, 2 days Age by LMP: 32 weeks, 0 days. BE by LMP: April 15, 2023. age by prior US: 31 weeks, 4 days. BE by prior US: April 18, 2023. age by current US: 32 weeks, 6 days. BE by current US: April 09, 2023. Estimated weight: 2150 grams, +/- 322 grams, 78 percentile. US/Biophysical Prof W/O Non Stres IMPRESSION: Single live uterine gestation with a mean gestational age of 31 weeks and 4 days. The measurements obtained today fall within normal expected range. Electronically Signed: Jez Christianson MD at 14:22 EDT ,
== END | disposition home or self-care (01) ==
LOC: US 07:57
PROVIDERS: Referring Provider Advanced Practice Midwife; Visit Provider Advanced Practice Midwife
DX: O10.919 Unspecified pre-existing hypertension complicating pregnancy, unspecified trimester (principal)
CPT/HCPCS: 76816; 76819

== ENCOUNTER 2023-02-23 09:09 | Outpatient (CLI) | payer OTHER, SELFPAY ==
[2023-02-23] MEDS: 0.9% NaCl Peripheral Flush Adult/Peds IV (09:21)
[2023-02-23 09:26] VITALS: BP 135/93; PULSE 100; RESP 16; TEMP 36.3; O2SAT 97; BMI 56.6
[2023-02-23] MEDS: 0.9% NaCl IVPB Med Flush (250 mL) 15 ML IV (09:50)
[2023-02-23 11:50] VITALS: BP 127/61; PULSE 91; RESP 16
== END 2023-02-23 09:10 | disposition home or self-care (01) ==
LOC: MEDOUTP 09:09
PROVIDERS: Referring Provider Obstetrics & Gynecology; Visit Provider Obstetrics & Gynecology
DX: D64.9 Anemia, unspecified (principal)
CPT/HCPCS: 96365; 96366; J1756; J7050; A4216

== ENCOUNTER 2023-02-25 08:50 | Outpatient (CLI) | payer OTHER, SELFPAY ==
--- NOTE | 2023-02-25 07:53 | US_ITS ---
EXAM: US BIOPHYSICAL PROFILE WITHOUT NON-STRESS TESTING CLINICAL INDICATION: well being -- 33 weeks TECHNIQUE: Real-time ultrasound of the maternal pelvis for biophysical profile evaluation with image documentation. COMPARISON: No relevant prior studies available. FINDINGS: BREATHING MOVEMENTS: 0 points were given for breathing movements. GROSS BODY MOVEMENTS: Present. Score 2/2. TONE: Present. Score 2/2. QUALITATIVE AMNIOTIC FLUID VOLUME: ISATU is 12.4 cm. FETUS: There is an intrauterine gestation. HEART RATE: heart rate is 144 bpm. PRESENTATION: The fetus is in cephalic position. PLACENTA: The placenta is anterior. OTHER FINDINGS: Biophysical profile score 6/8. US/Biophysical Prof W/O Non Stres IMPRESSION: Biophysical profile score 6/8 with 0 points given for breathing movements. ISATU is 12.4 cm. heart rate is 144 bpm. Electronically Signed: Napoleon Zayas MD at 0:17 EDT ,
[2023-02-25 10:28] VITALS: BP 140/72; PULSE 96
--- NOTE | 2023-02-25 17:29 | OB.TRI.HP_ITS ---
HPI - General HPI Narrative SVEN ANNA, is a 32 F who presents to L&D at 33 weeks for NST due to bpp of 6/8 (2 points off for breathing) Maternal Data Information BE Calculator Estimated Delivery Date Method Current WG Current Estimate 04/15/23 LMP (Certain) 33w 0d Other Estimates 04/16/23 Ultrasound #1 32w 6d PFSH PFSH Medical History Alcohol use Anemia Breast abscess Carpal tunnel syndrome History of edema IUD strings lost Migraine headache Non-smoker Status post hysteroscopy Strain of left knee Home Medications vitamin#30 30 mg iron-10 mg iron-folic acid 1 mg-omg3 capsule 1 cap PO DAILY 02/11/22 [History Last Taken Unknown] ondansetron HCl 4 mg tablet 4 mg PO Q8H PRN nausea and vomiting #30 tabs 10/17/22 [Rx Last Taken Unknown] blood pressure monitor (Blood Pressure Kit) #1 ea 01/22/23 [Rx Last Taken Unknown] ferrous sulfate 325 mg (65 mg iron) tablet (Feosol) 325 mg PO DAILY 01/22/23 [History Last Taken Unknown] nifedipine 60 mg tablet,extended release 24 hr (Procardia XL) 60 mg PO DAILY 30 days #30 tabs 02/02/23 [Rx Last Taken Unknown] Allergy/AdvReac Type Severity Reaction Status Date / Time No Known Allergies Allergy Verified 02/24/23 09:51 Family History Unknown Cancer Father Cancer testicular germ cell Myocardial infarction Surgical History History of carpal tunnel release of both wrists History of incision and drainage History of tonsillectomy Social History adopted: No household members: spouse housing: house current occupational status: employed current occupation: [employer] current occupational exposures/hazards: No pets and animals: Yes (Not managing litter box) pets and animals: cat(s) and do g(s) history of recent travel: No sexually active: Yes Smoking Status: Never smoker alcohol intake: never substance use type: does not use well-balanced diet: daily or most days caffeine: Yes Type: carbonated beverages Number of servings: 1 eating out: 1-3 times/week during the past year weight has: increased > 10 lbs what type of physical activity do you participate in: walking frequency: 3-4 times per week duration: 15-30 minutes/day ashley/pentecostal: L[employer] seatbelt use: always do you feel safe at home: Yes additional social history: [facility]- to [employer] History 1 Elective abortions Hx Para 0 Spontaneous abortions Hx # Term Pregnancies Ectopic pregnancies Hx # Pregnancies Multiple births # of living children Visit Details Expected Delivery Route/Plan Labor Preferences- CB/BF classes: [] labor support person: [] labor intervention preferences: [] pain management options preferred: [] cut cord/dad catch: [] : [] PP control planned: [] discussed possible routes of delivery and associated risks: [] special requests: [] Plans Covid status: [] Flu vaccine: [] Tdap vaccine: [] Rhogam: [] LARC form signed: [] Problem list reviewed and updated with the most current plan of care details and appropriate orders placed. Relevant counseling for the gestational age provided. Continue routine care and follow up unless otherwise noted in visit notes/problem list details OB Flowsheet Initial Weight: 320 lb Date -?-?-?-?-?-?-?-?-?-?-?-?- EGA Weight BP Urine Prot -?-?-?-?-?-?-?-?-?-?-?-?- Glucose FHR FuHt Pres Dilation -?-?-?-?-?-?-?-?-?-?-?-?- Effaced St Visit Note 09/23/22 -?-?-?-?-?-?-?-?-?-?-?-?- 10w 6d 320 lb (+0 oz) 142/89 -?-?-?-?-?-?-?-?-?-?-?-?- 189 -?-?-?-?-?-?-?-?-?-?-?-?- JV- single live IUP consistent with LMP. 10/20/22 -?-?-?-?-?-?-?-?-?-?-?-?- 14w 5d 317 lb 2 oz (-2 lb 14 oz) 134/82 Negative -?-?-?-?-?-?-?-?-?-?-?-?- Negative 162 -?-?-?-?-?-?-?-?-?-?-?-?- MH-No VB. Review ed PNL. Taking Fe daily. Vladimir helping nausea. Tearful today- hurt knee bowling, going to [facility] after this 11/16/22 -?-?-?-?-?-?-?-?-?-?-?-?- 18w 4d 322 lb (+2 lb) 138/72 Negative -?-?-?-?-?-?-?-?-?-?-?-?- Negative 154 -?-?-?-?-?-?-?-?-?-?-?-?- LC-no vb/crampin g. s/p medrol pack for knee pain. has anatomy scheduled for 11/19. discussed and declines afp 12/16/22 -?-?-?-?-?-?-?-?-?-?--?-?- 22w 6d 329 lb 8 oz (+9 lb 8 oz) 130/76 Negative -?-?-?-?-?-?-?-?-?-?-?-?- Negative 147 -?-?-?-?-?-?-?-?-?-?-?-?- JV- normal anato my scan. 28 weeks labs discussed 01/22/23 -?-?-?-?-?-?-?-?-?-?-?-?- 28w 1d 333 lb (+13 lb) 150/80 Negative -?--?-?-?-?-?-?-?-?-?-?-?- Negative 145 -?-?-?-?-?-?-?-?-?-?-?-?- KW-feeling flutt ers, no cramping. Redraw CBC in 4 weeks. KW-feeling flutters, no cram ping. Redraw CBC in 4 weeks. Baseline Pre E labs today KW-feeling flutters, no cram ping. Redraw CBC in 4 weeks. Baseline Pre E labs today. NSTs scheduled starting at 32 weeks. Growth US at 32 & 36 weeks. Tdap d one and LARC signed. 02/04/23 -?-?-?-?-?-?-?-?-?-?-?-?- 30w 0d 335 lb 6 oz (+15 lb 6 oz) 138/82 Negative -?-?-?-?-?-?-?-?-?-?-?-?- Negative 144 -?-?-?-?-?-?-?-?-?-?-?-?- JV- procardia 60 xl now working well. suspect chhtn based on first bp level. needs iron infusion and hoping they can do some PIH labs for us when she goes down there. if not able to then will order outpatient labs. 02/18/23 -?-?-?-?-?-?-?-?-?-?-?-?- 32w 0d 339 lb 4 oz (+19 lb 4 oz) 144/78 Negative -?-?-?-?-?-?-?-?-?-?-?-?- Negative 145 33 -?-?-?-?-?-?-?-?-?-?-?-?- JV- BPP today wa s 05/11. likely move to weekly bpp with NST at 36 weeks. bp much better and infusion was given last week. 02/24/23 -?-?-?-?-?-?-?-?-?-?-?-?- 32w 6d 340 lb 6 oz (+20 lb 6 oz) 143/81 Negative -?-?-?-?-?-?-?-?-?-?-?-?- Negative 150 Transverse -?-?-?-?-?-?-?-?-?-?-?-?- JV- reordering P IH for monitoring. bp slightly higher than last visit but overall stable. bpp was 8/8 last week, has another one tomorrow. ISATU was 16. ROS Constitutional Constitutional: Reports systems reviewed and no addt'l complaints, except as documented Gastrointestinal Gastrointestinal: Denies bloating, constipation, cramping, diarrhea, nausea or vomiting Genitourinary Genitourinary: Reports other Details: Denies vaginal odor, vaginal bleeding, or vaginal discharge ; Denies difficulty urinating or flank pain NST FHR Rate Baby A Baseline: 140 Variability:: Moderate Accelerations:: 15 x 15 Decelerations:: None NST Reactive:: Yes FHR Category:: Category I Assessment & Plan (1) Chronic hypertension affecting : COMMENT: BPP weekly starting 32 weeks Growth US at 32 (78%) and 36 weeks Home BP cuff- check BP 2x daily call in one week with BPs- bp's 150's/09's-100 starting procardia XL 30 and continue bp's at home may need increase (2) Anemia: COMMENT: recheck CBC 4 weeks (02/19) (3) Supervision of high risk , antepartum: COMMENT: [id number], BE 04/15/23 girl Cristina [facility] (4) : QUALIFIERS: Weeks of gestation: 32 weeks Qualified Code(s): Z3A.32 - 32 weeks gestation of COMMENT: DOC ONLY discussed genetic & carrier testing, nl anatomy (5) Morbid obesity: COMMENT: discussed healthy lifestyle changes. PLAN: Plan bpp 05/13 now with the reactive NST continue monitoring closely outpatient. may dc to home Charges/Coding Multi Select Codes Urinary/Genital Urinary/Genital CPT Codes: 24032-23 non-stress test Interp
== END 2023-02-25 10:15 | disposition home or self-care (01) ==
LOC: US 08:57 → WPOUT 08:58 → WP 08:59
PROVIDERS: Referring Provider Obstetrics & Gynecology; Visit Provider Obstetrics & Gynecology
DX: O16.3 Unspecified maternal hypertension, third trimester (principal); Z3A.32 32 weeks gestation of pregnancy
CPT/HCPCS: 59025; 59050; 76819

== ENCOUNTER → 2023-03-04 | Outpatient (CLI) | payer OTHER, SELFPAY ==
--- NOTE | 2023-03-04 14:29 | US_ITS ---
EXAM: US BIOPHYSICAL PROFILE WITHOUT NON-STRESS TESTING CLINICAL INDICATION: well being -- 34 weeks TECHNIQUE: Real-time ultrasound of the maternal pelvis for biophysical profile evaluation with image documentation. COMPARISON: No relevant prior studies available. FINDINGS: BREATHING MOVEMENTS: Present. Score 2/2. GROSS BODY MOVEMENTS: Present. Score 2/2. TONE: Present. Score 2/2. QUALITATIVE AMNIOTIC FLUID VOLUME: Amniotic fluid index is 14.1 cm. Deepest vertical pocket is 6.3 cm. HEART RATE: heart rate 147 bpm. PRESENTATION: Cephalic presentation. PLACENTA: Placenta is anterior and not low-lying. US/Biophysical Prof W/O Non Stres IMPRESSION: No acute findings. Normal biophysical profile with score of 8/8. Electronically Signed: Abe Medina MD at 23:42 EDT ,
[2023-03-04 16:10] LABS: Uric Acid 4.8 mg/dL (2.6-6.0)
[2023-03-04 16:20] LABS: Protein, Urine (Random) < 6.0 mg/dL (<11.9)
== END | disposition home or self-care (01) ==
PROVIDERS: Obstetrics & Gynecology; Referring Provider Advanced Practice Midwife; Visit Provider Advanced Practice Midwife
DX: O10.919 Unspecified pre-existing hypertension complicating pregnancy, unspecified trimester (principal); Z3A.34 34 weeks gestation of pregnancy
CPT/HCPCS: 36415; 76819; 82570; 84156; 84550

== ENCOUNTER → 2023-03-11 | Outpatient (CLI) | payer OTHER, SELFPAY ==
--- NOTE | 2023-03-11 07:58 | US_ITS ---
STUDY: OBSTETRICAL ULTRASOUND - BIOPHYSICAL PROFILE REASON FOR EXAM: Female, 32 years old well being -- 35 weeks LMP: July 09, 2022. PRIOR ULTRASOUND: Comparison is made with prior study dated March 04, 2023. TECHNIQUE: Transabdominal TECHNICAL QUALITY: Adequate. FINDINGS: There is a single intrauterine fetus. The fetus is in a cephalic presentation. There is demonstrated cardiac activity with a heart rate of 135 bpm. There is a normal amniotic fluid volume. The largest amniotic fluid pocket measures 4.37 cm. The amniotic fluid index (ISATU) is 10.23 cm. The placenta is anterior in location and is not low lying. There are Grade 1 placental changes. Age by LMP: 35 weeks, 0 days. BE by LMP: April 15, 2023. age by prior US: 35 weeks, 6 days. BE by prior US: April 09, 2023. BIOPHYSICAL PROFILE: Breathing Movements (FBM): 2 Gross Body Movements (GBM): 2 Tone (FT): 2 Amniotic Fluid Volume (AFV): 2 TOTAL SCORE: 8 / 8 US/Biophysical Prof W/O Non Stres IMPRESSION: Normal biophysical profile of 8/8. Electronically Signed: Jez Christianson MD at 15:44 EDT ,
== END | disposition home or self-care (01) ==
LOC: US 07:56
PROVIDERS: Referring Provider Advanced Practice Midwife; Visit Provider Advanced Practice Midwife
DX: O10.919 Unspecified pre-existing hypertension complicating pregnancy, unspecified trimester (principal); Z3A.00 Weeks of gestation of pregnancy not specified
CPT/HCPCS: 76819

== ENCOUNTER 2023-03-14 10:35 | Outpatient (CLI) | payer OTHER, SELFPAY ==
[2023-03-14 10:47] VITALS: TEMP 37.1
[2023-03-14 11:09] VITALS: BP 134/63; PULSE 91
[2023-03-14 11:27] VITALS: BP 137/74; PULSE 87
[2023-03-14 11:30] LABS: Hematocrit 33.8 % (37-47); Hemoglobin 10.5 g/dL (12.0-15.0); Mean Corp Hgb Conc 31.1 g/dL (32-36); Mean Corpuscular Hgb 26.4 pg (27.0-32.0); Mean Corpuscular Volume 84.9 fL (81-99); Mean Platelet Vol. 8.9 fl (6.2-12.0); Platelet Count 164 K/mm3 (150-450); RBC Distribution Width CV 16.8 % (11.6-14.6); Red Blood Count 3.98 M/mm3 (4.2-5.4); White Blood Count 8.7 K/mm3 (4.4-11.0)
[2023-03-14 11:35] VITALS: BP 136/75; PULSE 87
[2023-03-14 11:41] LABS: Protein, Urine (Random) < 6.0 mg/dL (<11.9)
[2023-03-14 11:45] VITALS: BP 132/70; PULSE 86
[2023-03-14 11:52] LABS: AST(SGOT) 42 U/L (15-37); Alanine Aminotransfer ALT/SGPT 21 U/L (13-56); EST Glomerular Filtration Rate 122 mL/min (>60); Est Glom Filt Rate - Afr Amer 148 mL/min (>60); Uric Acid 4.8 mg/dL (2.6-6.0)
[2023-03-14 11:55] VITALS: BP 124/61; PULSE 81
--- NOTE | 2023-03-14 13:30 | OB.TRI.HP_ITS ---
HPI - General HPI Narrative SVEN ANNA, is a 32 F who presents at 35+3 with consistent headache during her work shift. no change in BP medications. admitted to for extended BP monitoring and PEC labs. +fm, denies lof, vb.ctx. Maternal Data Information BE Calculator Estimated Delivery Date Method Current WG Current Estimate 04/15/23 LMP (Certain) 35w 6d Other Estimates 04/16/23 Ultrasound #1 35w 5d PFSH PFSH Medical History Alcohol use Anemia Breast abscess Carpal tunnel syndrome History of edema IUD strings lost Migraine headache Non-smoker Status post hysteroscopy Strain of left knee Home Medications vitamin#30 30 mg iron-10 mg iron-folic acid 1 mg-omg3 capsule 1 cap PO DAILY 02/11/22 [History Last Taken 03/14/23 01:45 1 tab] ondansetron HCl 4 mg tablet 4 mg PO Q8H PRN nausea and vomiting #30 tabs 10/17/22 [Rx Last Taken Unknown] blood pressure monitor (Blood Pressure Kit) #1 ea 01/22/23 [Rx Last Taken Unknown] ferrous sulfate 325 mg (65 mg iron) tablet (Feosol) 325 mg PO DAILY 01/22/23 [History Last Taken 03/13/23 21:00 325 mg] nifedipine 60 mg tablet,extended release 60 mg PO DAILY htn 03/11/23 [History Last Taken 03/14/23 08:10 60 mg] Allergy/AdvReac Type Severity Reaction Status Date / Time No Known Allergies Allergy Verified 03/17/23 16:09 Family History Unknown Cancer Father Cancer testicular germ cell Myocardial infarction Surgical History History of carpal tunnel release of both wrists History of incision and drainage History of tonsillectomy Social History adopted: No household members: spouse housing: house current occupational status: employed 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 current occupational exposures/hazards: No pets and animals: Yes (Not managing litter box) pets and animals: cat(s) and dog(s) history of recent travel: No sexually active: Yes Smoking Status: Never smoker alcohol intake: never substance use type: does not use well-balanced diet: daily or most days caffeine: Yes Type: carbonated beverages Number of servings: 1 eating out: 1-3 times/week during the past year weight has: increased > 10 lbs what type of physical activity do you participate in: walking frequency: 3-4 times per week duration: 15-30 minutes/day ashley/sikh: Anabaptism seatbelt use: always do you feel safe at home: Yes additional social history: [employer]- to [employer] History 1 Elective abortions Hx Para 0 Spontaneous abortions Hx # Term Pregnancies Ectopic pregnancies Hx # Pregnancies Multiple births # of living children Visit Details Expected Delivery Route/Plan Labor Preferences- CB/BF classes: done labor support person: stanley, mom Petrona labor intervention preferences: nonspecific pain management options preferred: epidural cut cord/dad catch: yes to cord : yes PP control planned: [] discussed possible routes of delivery and associated risks: [] special requests: [] Plans Covid status: discussed Flu vaccine: discussed Tdap vaccine: given Rhogam: na LARC form signed: declined movement and labor precautions reviewed. Problem list reviewed and updated with the most current plan of care details and appropriate orders placed. Relevant counseling for the gestational age provided. Continue routine care and follow up unless otherwise noted in visit notes/problem list details OB Flowsheet Initial Weight: 320 lb Date -?-?-?-?-?-?-?-?-?-?-?-?- EGA Weight BP Urine Prot -?-?-?-?-?-?-?-?-?-?-?-?- Glucose FHR FuHt Pres Dilation -?-?-?-?-?-?-?-?-?-?-?-?- Effaced St Visit Note 09/23/22 -?-?-?-?-?-?-?-?-?-?-?-?- 10w 6d 320 lb (+0 oz) 142/89 -?-?-?-?-?-?-?-?-?-?-?-?- 189 -?-?-?-?-?-?-?-?-?-?-?-?- JV- single live IUP consistent with LMP. 10/20/22 -?-?-?-?-?-?-?-?-?-?-?-?- 14w 5d 317 lb 2 oz (-2 lb 14 oz) 134/82 Negative -?-?-?-?-?-?-?-?-?-?-?-?- Negative 162 -?-?-?-?-?-?-?-?-?-?-?-?- MH-No VB. Review ed PNL. Taking Fe daily. Vladimir helping nausea. Tearful today- hurt knee bowling, going to [facility] after this 11/16/22 -?-?-?-?-?-?-?-?-?-?-?-?- 18w 4d 322 lb (+2 lb) 138/72 Negative -?-?-?-?-?-?-?-?-?-?-?-?- Negative 154 -?-?-?-?-?-?-?-?-?-?-?-?- LC-no vb/crampin g. s/p medrol pack for knee pain. has anatomy scheduled for 11/19. discussed and declines afp 12/16/22 -?-?-?-?-?-?-?-?-?-?-?-?- 22w 6d 329 lb 8 oz (+9 lb 8 oz) 130/76 Negative -?-?-?-?-?-?-?-?-?-?-?-?- Negative 147 -?-?-?-?-?-?-?-?-?--?-?-?- JV- normal anato my scan. 28 weeks labs discussed 01/22/23 -?-?-?-?-?-?-?-?-?-?-?-?- 28w 1d 333 lb (+13 lb) 150/80 Negative -?-?-?-?-?-?-?-?-?-?-?-?- Negative 145 -?-?-?-?-?-?-?-?-?-?-?-?- KW-feeling flutt ers, no cramping. Redraw CBC in 4 weeks. KW-feeling flutters, no cram ping. Redraw CBC in 4 weeks. Baseline Pre E labs today KW-feeling flutters, no cram ping. Redraw CBC in 4 weeks. Baseline Pre E labs today. NSTs scheduled starting at 32 weeks. Growth US at 32 & 36 weeks. Tdap done and LARC signed. 02/04/23 -?-?-?-?-?-?-?-?-?-?-?-?- 30w 0d 335 lb 6 oz (+15 lb 6 oz) 138/82 Negative -?-?-?-?-?-?-?-?-?-?-?-?- Negative 144 -?-?-?-?-?-?-?-?-?-?-?-?- JV- procardia 60 xl now working well. suspect chhtn based on first bp level. needs iron infusion and hoping they can do some PIH labs for us when she goes down there. if not able to then will order outpatient labs. 02/18/23 -?-?-?-?-?-?-?-?-?-?-?-?- 32w 0d 339 lb 4 oz (+19 lb 4 oz) 144/78 Negative -?-?-?-?-?-?-?-?-?-?-?-?- Negative 145 33 -?-?-?-?-?-?-?-?-?-?-?-?- JV- BPP today wa s 05/11. likely move to weekly bpp with NST at 36 weeks. bp much better and infusion was given last week. 02/24/23 -?-?-?-?-?-?-?-?-?-?-?-?- 32w 6d 340 lb 6 oz (+20 lb 6 oz) 143/81 Negative -?-?-?-?-?-?-?-?-?-?-?-?- Negative 150 Transverse -?-?-?-?-?-?-?-?-?-?-?-?- JV- reordering P IH for monitoring. bp slightly higher than last visit but overall stable. bpp was 05/11 last week, has another one tomorrow. ISATU was 16. 03/04/23 -?-?-?-?-?-?-?-?-?-?-?-?- 34w 0d 340 lb 6 oz (+20 lb 6 oz) 117/56 Negative -?-?-?-?-?-?-?-?-?-?-?-?- Negative 153 -?-?-?-?-?-?-?-?-?-?-?-?- JV- bpp this aft eva. bp normal today. no complaints. 03/11/23 -?-?-?-?-?-?-?-?-?-?-?-?- 35w 0d 344 lb 8 oz (+24 lb 8 oz) 134/78 Negative -?-?-?-?-?-?-?-?-?-?-?-?- Negative 135 37 -?-?-?-?-?-?-?-?-?-?-?-?- SM- no vb lof go od fm no regular ctx 03/17/23 -?-?-?-?-?-?-?-?-?-?-?-?- 35w 6d 344 lb 8 oz (+24 lb 8 oz) 160/80 136/83 Negative -?-?-?-?-?-?-?-?-?-?-?-?- Negative 144 38 Cephalic 1 -?-?-?-?-?-?-?-?-?-?-?-?- 50 -3 JV- no lof , vag bleeding, or dec fm. planning 38 week IOL. JV- no lof, vag bleeding, or dec fm. planning 38 week IOL. on 04/01/23 at 7pm NST FHR Rate Baby A Baseline: 130 Variability:: Moderate Accelerations:: 15 x 15 Decelerations:: None NST Reactive:: Yes FHR Category:: Category I Assessment & Plan (1) Chronic hypertension affecting : COMMENT: BPP weekly starting 32 weeks Growth US at 32 (78%) and 36 weeks procardia XL 60 deliver at 38 IOL 04/01/23 at 7pm (2) Anemia: COMMENT: recheck CBC 4 weeks (02/19) (3) Supervision of high risk , antepartum: COMMENT: [id number], BE 04/15/23 girl Cristina [facility] (4) : QUALIFIERS: Weeks of gestation: 35 weeks Qualified Code(s): Z3A.35 - 35 weeks gestation of COMMENT: DOC ONLY discussed genetic & carrier testing, nl anatomy (5) Morbid obesity: COMMENT: discussed healthy lifestyle changes. PLAN: Plan Patient presents for triage evaluation secondary to headaches with known chronic HTN. FHT: Moderate variability reactive no decelerations category I tracing [place]: no Contractions Assessment and plan: Reactive NST, reassuring maternal and status patient discharged to home to follow-up in office this week.. See problem list details for additional plan information. Charges/Coding Procedures Urinary/Genital 52xxx-59xxx: 44716-95 non-stress test Interp
== END 2023-03-14 12:00 | disposition home or self-care (01) ==
LOC: WPOUT 10:40 → WP 10:40
PROVIDERS: Referring Provider Registered Nurse; Visit Provider Registered Nurse
DX: O16.3 Unspecified maternal hypertension, third trimester (principal); E66.01 Morbid (severe) obesity due to excess calories; Z3A.35 35 weeks gestation of pregnancy; O99.891 Other specified diseases and conditions complicating pregnancy; R51.9 Headache, unspecified; O99.013 Anemia complicating pregnancy, third trimester; O09.93 Supervision of high risk pregnancy, unspecified, third trimester; O99.213 Obesity complicating pregnancy, third trimester; Z79.899 Other long term (current) drug therapy
CPT/HCPCS: 36415; 59025; 59050; 82565; 82570; 84156; 84450; 84460; 84550; 85027; 99221; G0378

== ENCOUNTER → 2023-03-17 | Outpatient (CLI) | payer OTHER, SELFPAY | END | disposition home or self-care (01) | PROVIDERS: Visit Provider Obstetrics & Gynecology | DX: O09.90 Supervision of high risk pregnancy, unspecified, unspecified trimester (principal); Z3A.00 Weeks of gestation of pregnancy not specified | CPT/HCPCS: 87081 ==

== ENCOUNTER → 2023-03-18 | Outpatient (CLI) | payer OTHER, SELFPAY ==
--- NOTE | 2023-03-18 08:03 | US_ITS ---
STUDY: SECOND AND THIRD TRIMESTER OBSTETRICAL ULTRASOUND - LIMITED REASON FOR EXAM: Female, 32 years old growth -- 32 Weeks -- -- Chronic HTN LMP: July 09, 2022. PRIOR ULTRASOUND: Comparison is made with prior study dated March 11, 2023. TECHNIQUE: Transabdominal TECHNICAL QUALITY: Adequate. FINDINGS: There is a single intrauterine fetus. The fetus is in a cephalic presentation. There is demonstrated cardiac activity with a heart rate of 138 bpm. There is a normal amniotic fluid volume. The largest amniotic fluid pocket measures 4.5 cm. The amniotic fluid index (ISATU) is 10.7 cm. The placenta is anterior in location and is not low lying. There are Grade 1 placental changes. The cervix was unable to be measured due to the head positioning. BIOMETRY: BPD: 9.25 cm: 37 weeks, 4 days HC: 33.72 cm: 38 weeks, 5 days AC: 36.28 cm: 40 weeks, 1 days FL: 7.13 cm: 36 weeks, 4 days Age by LMP: 36 weeks, 0 days. BE by LMP: April 15, 2023. age by prior US: 36 weeks, 6 days. BE by prior US: April 09, 2023. age by current US: 38 weeks, 1 days. BE by current US: March 23, 2023. Estimated weight: 3655 grams, +/- 548 grams, 99 percentile. IMPRESSION: Single live intrauterine gestation with a mean gestational age of 36 weeks and 6 days. The measurements obtained today. Within the normal expected range. Electronically Signed: Jez Christianson MD at 8:48 EDT , STUDY: OBSTETRICAL ULTRASOUND - BIOPHYSICAL PROFILE REASON FOR EXAM: Female, 32 years old growth -- 32 Weeks -- -- Chronic HTN LMP: July 09, 2022 PRIOR ULTRASOUND: Comparison is made with prior study dated March 11, 2023 TECHNIQUE: Transabdominal TECHNICAL QUALITY: Adequate. FINDINGS: There is a single intrauterine fetus. The fetus is in a cephalic presentation. There is demonstrated cardiac activity with a heart rate of 138 bpm. There is a normal amniotic fluid volume. The largest amniotic fluid pocket measures 4.5 cm. The amniotic fluid index (ISATU) is 10.7 cm. The placenta is There are Grade 0 placental changes. Age by LMP: 36 weeks, 0 days. BE by LMP: April 15, 2023. age by prior US: 36 weeks, 6 days. BE by prior US: April 09, 2023. BIOPHYSICAL PROFILE: Breathing Movements (FBM): 2 Gross Body Movements (GBM): 2 Tone (FT): 2 Amniotic Fluid Volume (AFV): 2 TOTAL SCORE: US/OB Limited With Biometrics IMPRESSION: Normal biophysical profile of 05/11. Electronically Signed: Jez Christianson MD at 8:49 EDT ,
== END | disposition home or self-care (01) ==
LOC: US 07:57
PROVIDERS: Referring Provider Advanced Practice Midwife; Visit Provider Advanced Practice Midwife
DX: O10.913 Unspecified pre-existing hypertension complicating pregnancy, third trimester (principal); Z3A.36 36 weeks gestation of pregnancy; O99.213 Obesity complicating pregnancy, third trimester
CPT/HCPCS: 76816; 76819

== ENCOUNTER → 2023-03-24 | Outpatient (CLI) | payer OTHER, SELFPAY ==
--- NOTE | 2023-03-24 08:00 | US_ITS ---
EXAM: US BIOPHYSICAL PROFILE WITHOUT NON-STRESS TESTING CLINICAL INDICATION: chronic hypertension , well being TECHNIQUE: Real-time ultrasound of the maternal pelvis for biophysical profile evaluation with image documentation. COMPARISON: 03/18/2023. FINDINGS: BREATHING MOVEMENTS: Present. Score 2/2. GROSS BODY MOVEMENTS: Present. Score 2/2. TONE: Present. Score 2/2. QUALITATIVE AMNIOTIC FLUID VOLUME: Within normal limits. Score 2/2. ISATU is within normal limits, measuring 8.7 cm. FETUS: Single live intrauterine . HEART RATE: heart rate: 133 bpm. PRESENTATION: Cephalic position. PLACENTA: The placenta is anterior, with no previa or other abnormality. US/Biophysical Prof W/O Non Stres IMPRESSION: No acute findings. Normal biophysical profile with score of 8/8. Electronically Signed: Audie Klein MD at 1:02 EDT ,
== END | disposition home or self-care (01) ==
LOC: US 07:59
PROVIDERS: Referring Provider Advanced Practice Midwife; Visit Provider Advanced Practice Midwife
DX: O10.913 Unspecified pre-existing hypertension complicating pregnancy, third trimester (principal); Z3A.37 37 weeks gestation of pregnancy
CPT/HCPCS: 76819

== ENCOUNTER 2023-03-25 17:33 | Outpatient (CLI) | payer OTHER, SELFPAY ==
[2023-03-25 17:50] VITALS: BP 148/72; PULSE 102; TEMP 36.9
[2023-03-25 17:51] VITALS: BMI 59.4
[2023-03-25 18:02] VITALS: BP 141/64; PULSE 96
[2023-03-25 18:36] VITALS: PULSE 91; O2SAT 98
--- NOTE | 2023-03-26 16:40 | OB.TRI.PN ---
Progress Notes Date of Service: 03/25/23 Progress Note: Patient presents for triage evaluation secondary to decreased movement FHT: 140 Moderate variability reactive no decelerations category I tracing [place]: no reuglar Contractions Assessment and plan: decreased movement Reactive NST, reassuring maternal and status patient discharged to home to follow-up as scheduled. See problem list details for additional plan information. Charges/Coding Procedures Urinary/Genital 52xxx-59xxx: 24958-05 non-stress test Interp
== END 2023-03-25 19:53 | disposition home or self-care (01) ==
LOC: WPOUT 17:36 → WP 17:37
PROVIDERS: Referring Provider Obstetrics & Gynecology; Visit Provider Obstetrics & Gynecology
DX: O36.8190 Decreased fetal movements, unspecified trimester, not applicable or unspecified (principal); Z3A.00 Weeks of gestation of pregnancy not specified
CPT/HCPCS: 59025; 59050

== ENCOUNTER 2023-04-01 04:55 | Inpatient (IN) | payer OTHER, SELFPAY ==
--- NOTE | 2023-03-31 19:18 | HP.PCM.OB_ITS ---
HPI - General HPI Narrative SVEN ANNA, is a 32 F who presents to L&D for a primary for suspected macrosomia on ultrasound. She is a @ 38 weeks 0 days and is being treated for chronic hypertension in the . Maternal Data Information BE Calculator Estimated Delivery Date Method Current WG Current Estimate 04/15/23 LMP (Certain) 37w 6d Other Estimates 04/16/23 Ultrasound #1 37w 5d PFSH PFSH Medical History Alcohol use Anemia Breast abscess Carpal tunnel syndrome History of edema IUD strings lost Migraine headache Non-smoker Status post hysteroscopy Strain of left knee Home Medications vitamin#30 30 mg iron-10 mg iron-folic acid 1 mg-omg3 capsule 1 cap PO DAILY 02/11/22 [History Last Taken 03/25/23 08:00] blood pressure monitor (Blood Pressure Kit) #1 ea 01/22/23 [Rx Last Taken Unknown] ferrous sulfate 325 mg (65 mg iron) tablet (Feosol) 325 mg PO DAILY 01/22/23 [History Last Taken 03/24/23 21:00] nifedipine 60 mg tablet,extended release 60 mg PO DAILY htn 03/11/23 [History Last Taken 03/25/23 08:00] Allergy/AdvReac Type Severity Reaction Status Date / Time No Known Allergies Allergy Verified 03/25/23 17:53 Family History Unknown Cancer Father Cancer testicular germ cell Myocardial infarction Surgical History History of carpal tunnel release of both wrists History of incision and drainage History of tonsillectomy Social History adopted: No household members: spouse housing: house current occupational status: employed 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 current occupational exposures/hazards: No pets and animals: Yes (Not managing litter box) pets and animals: cat(s) and dog(s) history of recent travel: No sexually active: Yes Smoking Status: Never smoker alcohol intake: never details: social substance use type: does not use well-balanced diet: daily or most days caffeine: Yes Type: carbonated beverages Number of servings: 1 eating out: 1-3 times/week during the past year weight has: increased > 10 lbs what type of physical activity do you participate in: walking frequency: 3-4 times per week duration: 15-30 minutes/day ashley/amish: Episcopal seatbelt use: always do you feel safe at home: Yes additional social history: [facility]- to [employer] History 1 Elective abortions Hx Para 0 Spontaneous abortions Hx # Term Pregnancies Ectopic pregnancies Hx # Pregnancies Multiple births # of living children Visit Details Expected Delivery Route/Plan Labor Preferences- CB/BF classes: done labor support person: stanley, mom Petrona labor intervention preferences: nonspecific pain management options preferred: epidural cut cord/dad catch: yes to cord : yes PP control planned: [] discussed possible routes of delivery and associated risks: [] special requests: [] Plans Covid status: discussed Flu vaccine: discussed Tdap vaccine: given Rhogam: na LARC form signed: declined movement and labor precautions reviewed. Problem list reviewed and updated with the most current plan of care details and appropriate orders placed. Relevant counseling for the gestational age provided. Continue routine care and follow up unless otherwise noted in visit notes/problem list details OB Flowsheet Initial Weight: 320 lb Date -?-?-?-?-?-?-?-?-?-?-?-?- EGA Weight BP Urine Prot -?-?-?-?-?-?-?-?-?-?-?-?- Glucose FHR FuHt Pres Dilation -?-?-?-?-?-?-?-?-?-?-?-?- Effaced St Visit Note 09/23/22 -?-?-?-?-?-?-?-?-?-?-?-?- 10w 6d 320 lb (+0 oz) 142/89 -?-?-?-?-?-?-?-?-?-?-?-?- 189 -?-?-?-?-?-?-?-?-?-?-?-?- JV- single live IUP consistent with LMP. 10/20/22 -?-?-?-?-?-?-?-?-?-?-?-?- 14w 5d 317 lb 2 oz (-2 lb 14 oz) 134/82 Negative -?-?-?-?-?-?-?-?-?-?-?-?- Negative 162 -?-?-?-?-?-?-?-?-?-?-?-?- MH-No VB. Review ed PNL. Taking Fe daily. Vladimir helping nausea. Tearful today- hurt knee bowling, going [facility] after this 11/16/22 -?-?-?-?-?-?--?-?-?-?-?-?- 18w 4d 322 lb (+2 lb) 138/72 Negative -?-?-?-?-?-?-?-?-?-?-?-?- Negative 154 -?-?-?-?-?-?-?-?-?-?-?-?- LC-no vb/crampin g. s/p medrol pack for knee pain. has anatomy scheduled for 11/19. discussed and declines afp 12/16/22 -?-?-?-?-?-?-?-?-?-?-?-?- 22w 6d 329 lb 8 oz (+9 lb 8 oz) 130/76 Negative -?-?-?-?-?-?-?-?-?-?-?-?- Negative 147 -?-?-?-?-?-?-?-?-?-?-?-?- JV- normal anato my scan. 28 weeks labs discussed 01/22/23 -?-?-?-?-?-?-?-?-?-?-?-?- 28w 1d 333 lb (+13 lb) 150/80 Negative -?-?-?-?-?-?-?-?-?-?-?-?- Negative 145 -?-?-?-?-?-?-?-?-?-?-?-?- KW-feeling flutt ers, no cramping. Redraw CBC in 4 weeks. KW-feeling flutters, no cram ping. Redraw CBC in 4 weeks. Baseline Pre E labs today KW-feeling flutters, no cram ping. Redraw CBC in 4 weeks. Baseline Pre E labs today. NSTs scheduled starting at 32 weeks. Growth US at 32 & 36 weeks. Tdap done and LARC signed. 02/04/23 -?-?--?-?-?-?-?-?-?-?-?-?- 30w 0d 335 lb 6 oz (+15 lb 6 oz) 138/82 Negative -?-?-?-?-?-?-?-?-?-?-?-?- Negative 144 -?-?-?-?-?-?-?-?-?-?-?-?- JV- procardia 60 xl now working well. suspect chhtn based on first bp level. needs iron infusion and hoping they can do some [facility] labs for us when she goes down there. if not able to then will order outpatient labs. 02/18/23 -?-?-?-?-?-?-?-?-?-?-?-?- 32w 0d 339 lb 4 oz (+19 lb 4 oz) 144/78 Negative -?-?-?-?-?-?-?-?-?-?-?-?- Negative 145 33 -?-?-?-?-?-?-?-?-?-?-?-?- JV- BPP today wa s 05/11. likely move to weekly bpp with NST at 36 weeks. bp much better and infusion was given last week. 02/24/23 -?-?-?-?-?-?-?-?-?-?-?-?- 32w 6d 340 lb 6 oz (+20 lb 6 oz) 143/81 Negative -?-?-?-?-?-?-?-?-?-?-?-?- Negative 150 Transverse -?-?-?-?-?-?-?-?-?-?-?-?- JV- reordering P IH for monitoring. bp slightly higher than last visit but overall stable. bpp was 8 last week, has another one tomorrow. ISATU was 16. 03/04/23 -?-?-?-?-?-?-?-?-?-?-?-?- 34w 0d 340 lb 6 oz (+20 lb 6 oz) 117/56 Negative -?-?-?-?-?-?-?-?-?-?-?-?- Negative 153 -?-?-?-?-?-?-?-?-?-?-?-?- JV- bpp this aft eva. bp normal today. no complaints. 03/11/23 -?-?-?-?-?-?-?-?-?-?-?-?- 35w 0d 344 lb 8 oz (+24 lb 8 oz) 134/78 Negative -?-?-?-?-?-?-?-?-?-?-?-?- Negative 135 37 -?-?-?-?-?-?-?-?-?-?-?-?- SM- no vb lof go od fm no regular ctx 03/17/23 -?-?-?-?-?-?-?-?-?-?-?-?- 35w 6d 344 lb 8 oz (+24 lb 8 oz) 160/80 136/83 Negative -?-?-?-?-?-?-?-?-?-?-?-?- Negative 144 38 Cephalic 1 -?-?-?-?-?-?-?-?-?-?-?-?- 50 -3 JV- no lof , vag bleeding, or dec fm. planning 38 week IOL. JV- no lof, vag bleeding, or dec fm. planning 38 week IOL. on 04/01/23 at 7pm 03/24/23 -?-?-?-?-?-?-?-?-?-?-?-?- 36w 6d 350 lb 2 oz (+30 lb 2 oz) 128/79 Negative -?-?-?-?-?-?-?-?-?-?-?-?- Negative 160 -?-?-?-?-?-?-?-?-?-?-?-?- JV- growth scan showed 8 lbs efw at 36 weeks. Anya is electing for a primary section. bpp is 05/11 today. hiccups on exam. consent for surgery signed. ROS Constitutional Constitutional: Denies change in weight, fatigue, fever(s), headache(s), poor appetite or weakness Eyes Eyes: Denies blurry vision, change in vision, seeing flashes or spots in vision ENT HEENT: Denies dizziness, headache(s), loss taste/smell or sore throat Cardiovascular Cardiovascular: Denies chest pain, dizziness, dyspnea, irregular heart rhythm, leg edema, palpitations, rapid heart rate or vomiting Respiratory/Chest Respiratory/Chest: Denies chest tightness, cough, dyspnea or breast pain Gastrointestinal Gastrointestinal: Denies abdominal pain, anorexia, constipation, cramping, diarrhea, hemorrhoids, vomiting or weight changes Genitourinary Genitourinary: Denies dysuria, flank pain, genital lesions, genital pain, urinary frequency or urinary urgency Musculoskeletal Musculoskeletal: Denies back pain, difficulty walking, joint pain, limited range of motion, muscle cramps or numbness Integumentary Integumentary: Denies lesions or unusual bruising Neurologic Neurologic: Denies abnormal movements, abnormal speech, dizziness, numbness, seizure-like activity or syncope Psychiatric Psychiatric: Denies anxiety, behavioral changes, change in appetite, change in libido, cognitive impairment, confusion, depression, difficulty concentrating, hallucinations or suicidal thoughts Endocrine Endocrinology: Denies excessive sweating, polydipsia or polyuria Hematologic/Lymphatic Hematologic/Lymphatic: Denies easy bleeding, easy bruising or lymphadenopathy Allergic/Immunologic Allergic/Immunologic: Denies itchy eyes, lip swelling, seasonal rhinorrhea, rhinitis, throat swelling, tongue swelling, eczemia, wheezing or asthma Physical Exam Const alert, oriented x3, no apparent distress and healthy appearing General Appearance: cooperative; Negative for anxious HEENT normocephalic Face and Sinus: normal facial exam Eyes EOMs intact bilaterally and no scleral icterus General Eye: normal appearance of both eyes Neck full ROM and supple Lymph Lymphatic: no lymphadenopathy noted Chest Chest: abnormal inspection of the chest Resp normal respiratory effort Effort and Inspection: able to speak in complete sentences Cardio regular rate GI soft to palpation and non-tender Inspection: gravid Palpation: soft; Negative for tender external exam normal Amniotic Fluid: ROM+plus Back/Spine no CVA tenderness Extremity normal to inspection, full ROM and no clubbing, cyanosis or edema General Extremity: Negative for calf tenderness or edema Skin Lesions: no lesions Rashes: no rashes Psych mental status grossly normal Labs Labs Labs: Blood Type A POSITIVE Antibody Screen NEGATIVE Hct 33.8 % (37-47) L Hgb 10.5 g/dL (12.0-15.0) L Pap Smear Negative Obstetrics US Syphilis Total Ab Non-reactive Rubella IgG Antibody Reactive (Nonreactive) Hep Bs Antigen Non-Reactive (Nonreactive) Chlamydia DNA (TAMIR) Negative (Negative) Neisseria gonorrhoeae DNA (TAMIR) Negative (Negative) HIV 1&2 Antibody Non-Reactive (Nonreactive) Glucose 1 Hr 50 gm 112 mg/dL (70-140) Miscellaneous Test Assessment & Plan (1) LGA (large for gestational age) fetus: COMMENT: measuring 99th% at 36 weeks (8lbs) plan was for 38 week IOL, however patient is deciding if wants primary section. decided on primary section on 04/01/23 at 7:10 (2) Chronic hypertension affecting : COMMENT: BPP weekly starting 32 weeks Growth US at 32 (78%) and 36 weeks procardia XL 60 deliver at 38 IOL 04/01/23 at 7pm (3) Anemia: COMMENT: recheck CBC 4 weeks (02/19) (4) Supervision of high risk , antepartum: COMMENT: [id number], BE 04/15/23 girl Cristina Stanley (5) : QUALIFIERS: Weeks of gestation: 35 weeks Qualified Code(s): Z3A.35 - 35 weeks gestation of COMMENT: DOC ONLY GBS neg. discussed genetic & carrier testing, nl anatomy (6) Morbid obesity: COMMENT: discussed healthy lifestyle changes. PLAN: Plan plan for ERAS primary section After discussing the patient's diagnosis and treatment plan options, patient wishes to proceed with surgical management. I have discussed with the patient the risks, benefits, and alternatives of the procedure which include but are not limited to risks of anesthesia, bleeding, infection, possible damage to bowel, bladder, or surrounding vasculature which could lead to additional surgery to evaluate any complications. Patient agrees to procedure and wishes to proceed. ACOG/uptodate references given for additional information regarding procedure.
[2023-04-01] VITALS (21 sets, daily range): BP systolic 91–126; BP diastolic 21–78; PULSE 85–112; RESP 12–18; TEMP 36.1–36.9; O2SAT 94–99; BMI 59.6
[2023-04-01] MEDS: Lactated Ringers 1,000 ML 999 ML IV (05:45)
[2023-04-01] MEDS: Acetaminophen 500 MG Tablet 1000 MG PO ×3 (05:50→19:09)
[2023-04-01 06:05] LABS: Absolute Lymphocyte Count 1.63 X10^3/uL (0.83-4.51); Absolute Neutrophil Count 6.2 X10^3/uL (2.0-7.7); Basophil# 0.03 X10^3/uL; Basophil% 0.4 % (0-1); Eosinophil# 0.08 X10^3/uL; Eosinophils% 0.9 % (0-5); Hematocrit 33.4 % (37-47); Hemoglobin 10.6 g/dL (12.0-15.0); Lymphocyte # 1.63 X10^3/ul (0.83-4.51); Lymphocyte % 19.2 % (19-41); Mean Corp Hgb Conc 31.7 g/dL (32-36); Mean Corpuscular Hgb 26.8 pg (27.0-32.0); Mean Corpuscular Volume 84.3 fL (81-99); Mean Platelet Vol. 9.8 fl (6.2-12.0); Monocyte# 0.43 X10^3/uL; Monocyte% 5.1 % (0-10); NRBC Flagged by Analyzer 0 % (0-5); Neutrophil # 6.21 X10^3/uL (2.7-7.7); Neutrophil % 73.3 % (47-70); Platelet Count 192 K/mm3 (150-450); RBC Distribution Width CV 16.7 % (11.6-14.6); RBC Distribution Width SD 50.9 fl (35.1-43.9); Red Blood Count 3.96 M/mm3 (4.2-5.4); White Blood Count 8.5 K/mm3 (4.4-11.0)
[2023-04-01] MEDS: Sodium Citrate/Citric Acid 30 ML UDC PO (06:50)
--- NOTE | 2023-04-01 08:22 | EX.PCM.OBRPT ---
Assessment & Plan (1) LGA (large for gestational age) fetus: COMMENT: measuring 99th% at 36 weeks (8lbs) plan was for 38 week IOL, however patient is deciding if wants primary section. decided on primary section on 04/01/23 at 7:10 (2) Chronic hypertension affecting : COMMENT: BPP weekly starting 32 weeks Growth US at 32 (78%) and 36 weeks procardia XL 60 deliver at 38 IOL 04/01/23 at 7pm (3) Supervision of high risk , antepartum: COMMENT: [id number], BE 04/15/23 philip Evans Stanley (4) : QUALIFIERS: Weeks of gestation: 35 weeks Qualified Code(s): Z3A.35 - 35 weeks gestation of COMMENT: DOC ONLY GBS neg. discussed genetic & carrier testing, nl anatomy (5) Morbid obesity: COMMENT: discussed healthy lifestyle changes. (6) Anemia: COMMENT: recheck CBC 4 weeks (02/19) Maternal Data Information BE Calculator Estimated Delivery Date Method Current WG Current Estimate 04/15/23 LMP (Certain) 38w 0d Other Estimates 04/16/23 Ultrasound #1 37w 6d Final BE: 04/15/23 Final BE Source: LMP Gestational age: 38 weeks 0 days Details Operative Information Date of Procedure: 04/01/23 Pre-Operative Diagnosis: 32 y/o @ 38 weeks 0 days, suspected macrosomia, maternal obesity, chronic hypertension on medication Post-Operative Diagnosis: 32 y/o @ 38 weeks 0 days, suspected macrosomia, maternal obesity, chronic hypertension on medication Classification: Scheduled Procedure Type: low transverse cs associate #1: Molly Berger Type of Anesthesia: Spinal Antibiotic Given: Ancef 3 grams IV x1 Drain: Turner to straight drain Estimated Blood Loss: 300cc Findings Description of Procedure: Spinal anesthesia was placed without difficulty. Turner catheter was placed. The patient was placed in the dorsal supine position with leftward tilt. Patient was prepped and draped in the normal sterile fashion. Pfannenstiel skin incision was made with the scalpel and carried through to the underlying layer of fascia with the scalpel. Fascia was nicked in the midline and the incision extended laterally. The rectus bellies were dissected off superiorly and inferiorly with out complication both sharply and bluntly. The peritoneum was entered digitally. The incision was stretched and a low transverse uterine incision was made with the scalpel. The infant's head was delivered atraumatically followed by the anterior and posterior shoulders without complication the rest of the infant delivered. The cord was clamped and cut and the infant was handed off to awaiting nurse. The placenta was delivered spontaneously immediately following and was noted to be intact and have a three-vessel cord. The uterus was exteriorized cleared of all clots and debris, and the incision was closed in a double layer closure using #1 Vicryl and #1 Monocryl. The ovaries and fallopian tubes were noted to be within normal limits. The uterus was returned to the maternal abdomen and gutters were cleared of all clots and debris. The peritoneum was closed with 3-0 Monocryl in a running fashion. Fascia was closed with 0 PDS in a running fashion. Subcutaneous tissue was copiously irrigated and closed with a 3-0 vicryl with 2 layers. The skin was closed with 3-0 Monocryl in a subcuticular fashion. Mepilex dressing was applied without complication. Patient was taken to recovery in stable condition. It was discussed with the patient that based on the clinical information obtained during this encounter, combined with her history, at this time I would recommend repeat section for future deliveries if further pregnancies are desired unless patient achieves reasonable weight loss prior to next . baby girl shauna weight: 7 lbs 10 oz, lower weight than expected from ultrasound at 36 weeks. Presentation: Positive for Vertex Amniotic Membrane Rupture Type: Artificial Amniotic Fluid Description: Clear Placental Delivery Description: Expressed Placenta Disposition: [facility] Cord Vessel Description: 3 Vessels Cord Entanglement: None Infant A Gender: Female (1 minute): 8 (5 minute): 9 Delayed Cord Clamping: Yes Complications Risks of Surgery Discussed w/Patient: Bleeding, Anesthesia Risks, Need for Future C-Sections and Injury to surrounding structure(s) including bowel and bladder Admit VTE Documentation VTE Mechan Device Prophylaxis: SCD's VTE Pharm Prophylaxis Ordered: Yes Multi Select Codes Urinary/Genital Urinary/Genital CPT Codes: 30188 Delivery [facility]
--- NOTE | 2023-04-01 08:28 | DCINST_ITS ---
Discharge Instructions Diet Discharge Diet: No restrictions Activity Discharge Activity: May Not Drive (for 2 weeks or while taking narcotic pain medications.), May Shower and May Take a Tub Bath (in 7 days.) May resume sexual activity in: 4-6 weeks Weight Bearing Status: Full weight bearing Lifting Restrictions: 20 pounds Dressing / Incision Call your doctor if your incision/area has: Continuous Slow Oozing, Sudden Increased Bleeding, Increased Pain/ Swelling, Increased Redness and Foul Smelling Discharge Call your doctor if you observe: Fever of 101 or Higher and Using more than 1 pad per hour Suture Line Care: Avoid Pulling/Pushing and Avoid Pinching/Bending Cleanse incision/area with: Soap & Water and Keep Dressing Clean & Dry Follow Up Care Please Follow Up With: Raven Cardona DO When: Call [phone] to make an appointment for an incision check in 1-2 weeks. Test Results: Test results from this visit will be discussed in further detail at your follow- up appointment, if applicable. Discharge Plan Admission Admit Date/Time: 04/01/23 04:55 Primary Reason for Your Visit: section Attending Provider: Raven Cardona Primary Care Provider: Idania Ruvalcaba Primary Discharge Orders/Prescriptions Prescriptions: New ibuprofen 800 mg tablet 800 mg PO Q8H PRN (Reason: pain) Qty: 30 0RF Continued PNV #[id number] 30 mg iron-10 mg iron-1 mg capsule 1 cap PO DAILY ferrous sulfate [Feosol] 325 mg (65 mg iron) tablet 325 mg PO DAILY (DME) blood pressure monitor [Blood Pressure Kit] Kit See Rx Instructions .Route Qty: 1 0RF Rx Instructions: As directed nifedipine 60 mg tablet extended release 60 mg PO DAILY Referrals / Follow Up: Care Physician,No Primary [Primary Care Provider] - Disposition Disposition (needs filled in before D/C Order can be placed): Home, Self Care
[2023-04-01 08:30] LABS: Syphilis Antibodies Non-reactive
[2023-04-01] MEDS: Oxytocin 15 Units/NS 250ml 15 UNITS/250 ML IV.SOLN 83 UNITS IV (08:30)
[2023-04-01] MEDS: Ketorolac 30 MG/ML Syringe IV ×3 (08:34→20:57)
[2023-04-01] MEDS: 0.9% Saline Lock 10 ML Syringe IV ×3 (08:34→20:57)
[2023-04-01] MEDS: Lactated Ringers 1,000 ML 100 ML IV (11:14)
[2023-04-01] MEDS: HYDROmorphone 1 MG/ML Syringe IV (11:14)
--- NOTE | 2023-04-01 12:56 | NURSING ---
Call placed to [place] regarding drainage on dressing. Per Dr. Berger place pressure dressing with binder on. Binder placed with pressure underneath.
[2023-04-01] MEDS: oxyCODONE 5 MG Tablet PO (14:36)
[2023-04-01] MEDS: Enoxaparin 40 MG/0.4 ML Syringe SC (19:56)
--- NOTE | 2023-04-01 23:10 | CPS ---
I.S taught per RN.
[2023-04-02] VITALS (8 sets, daily range): BP systolic 91–130; BP diastolic 48–71; PULSE 87–97; RESP 16–18; TEMP 36.1–36.3; O2SAT 94–99
[2023-04-02] MEDS: Acetaminophen 500 MG Tablet 1000 MG PO ×4 (00:07→18:41)
[2023-04-02] MEDS: Lactated Ringers 1,000 ML 999 ML IV (00:35)
[2023-04-02] MEDS: 0.9% Saline Lock 10 ML Syringe IV (03:11)
[2023-04-02] MEDS: Ketorolac 30 MG/ML Syringe IV (03:11)
[2023-04-02 07:01] LABS: Hematocrit 29.1 % (37-47); Hemoglobin 9.1 g/dL (12.0-15.0); Mean Corp Hgb Conc 31.3 g/dL (32-36); Mean Corpuscular Hgb 26.8 pg (27.0-32.0); Mean Corpuscular Volume 85.8 fL (81-99); Mean Platelet Vol. 9.4 fl (6.2-12.0); Platelet Count 140 K/mm3 (150-450); RBC Distribution Width CV 16.9 % (11.6-14.6); RBC Distribution Width SD 53.2 fl (35.1-43.9); Red Blood Count 3.39 M/mm3 (4.2-5.4); White Blood Count 7.9 K/mm3 (4.4-11.0)
[2023-04-02] MEDS: Senna/Docusate Sodium 1 Tablet PO (09:42)
[2023-04-02] MEDS: Ferrous Sulfate 325 MG Tablet PO (09:42)
[2023-04-02] MEDS: Naproxen 500 MG Tablet PO ×2 (09:43→17:14)
[2023-04-02] MEDS: Enoxaparin 40 MG/0.4 ML Syringe SC ×2 (10:56→22:09)
[2023-04-03] MEDS: Naproxen 500 MG Tablet PO ×2 (00:43→09:29)
[2023-04-03] MEDS: Acetaminophen 500 MG Tablet 1000 MG PO ×2 (00:43→06:26)
[2023-04-03 02:55] VITALS: BP 123/53; PULSE 87; RESP 16; TEMP 36.4; O2SAT 98
[2023-04-03 08:00] VITALS: BP 137/81; PULSE 92; RESP 16; TEMP 36.3; O2SAT 95
[2023-04-03] MEDS: Ferrous Sulfate 325 MG Tablet PO (09:29)
[2023-04-03] MEDS: Senna/Docusate Sodium 1 Tablet PO (09:29)
[2023-04-03] MEDS: Enoxaparin 40 MG/0.4 ML Syringe SC (09:29)
--- NOTE | 2023-04-03 10:41 | PCM.PN.OB ---
Subjective Subjective Patient is laying in bed comfortably without complaints. She states that she slept on an off during the night. Lochia is mild and pain is minimal. She would like to go home today Objective Data Objective Data Vital Signs: Vital Signs Temp Pulse Resp BP Pulse Ox O2 Del Method 97.4 F L 92 16 137/81 H 95 Room Air 04/03/23 08:00 04/03/23 08:00 04/03/23 08:00 04/03/23 08:00 04/03/23 08:00 04/03/23 08:00 Oxygen Delivery Method Room Air Weight: 347 lb 9.6 oz Body Mass Index (BMI) 59.6 Intake & Output: Intake and Output for Last 24 Hours 04/01/23 04/02/23 04/03/23 23:59 23:59 23:59 Intake Total 2306.67 / 2306.67 1000 / 1000 Output Total 2100 / 2100 Balance 206.67 / 206.67 1000 / 1000 Lab / Micro Data 04/02/23 06:40 ROS Constitutional Constitutional: Reports systems reviewed and no addt'l complaints, except as documented Cardiovascular Cardiovascular: Denies chest pain, dizziness, dyspnea or irregular heart rhythm Respiratory/Chest Respiratory/Chest: Denies cough, pain on inspiration or shortness of breath at rest Gastrointestinal Gastrointestinal: Denies abdominal pain, nausea or vomiting Genitourinary Genitourinary: Denies burning urination Musculoskeletal Musculoskeletal: Denies muscle cramps, muscle spasms or muscle weakness Neurologic Neurologic: Denies confusion, dizziness, headache(s) or lack of coordination Psychiatric Psychiatric: Denies anxiety, behavioral changes or depression Physical Exam HEENT normocephalic Resp normal respiratory effort and normal air movement GI soft to palpation, non-tender and non-distended Rectal Exam: other Other Details: Incision is clean, dry, and intact no CVA tenderness Extremity normal to inspection General Extremity: edema bilateral (trace ) Assessment & Plan (1) Status post section: PLAN: s/p LTCS PPD # 2 1. routine post care 2. breast feeding- support given 3. rh positive 4. rubella immune 5. plan for dc to home tomorrow
== END 2023-04-03 11:15 | disposition home or self-care (01) | DRG 788 ==
PROVIDERS: Admitting Provider Obstetrics & Gynecology; Referring Provider Obstetrics & Gynecology; Visit Provider Obstetrics & Gynecology
PROC: 10D00Z1 Extraction of Products of Conception, Low, Open Approach (ICD-10-PCS; CPT 59514; principal; 2023-04-01 06:55)
DX: O10.02 Pre-existing essential hypertension complicating childbirth (principal); O99.214 Obesity complicating childbirth; E66.01 Morbid (severe) obesity due to excess calories; O99.02 Anemia complicating childbirth; O36.63X0 Maternal care for excessive fetal growth, third trimester, not applicable or unspecified; Z37.0 Single live birth; Z3A.38 38 weeks gestation of pregnancy; Z79.899 Other long term (current) drug therapy
CPT/HCPCS: 36415; 59050; 85025; 85027; 86780; 86850; 86900; 86901; 99221; J7120; A4216; G0378; J2405

== ENCOUNTER → 2023-05-13 | Outpatient (CLI) | payer OTHER, SELFPAY ==
[2023-05-19 12:09] LABS: HPV APTIMA, High Risk Negative (Negative)
== END | disposition home or self-care (01) ==
LOC: WPOUT 13:13
PROVIDERS: Referring Provider Obstetrics & Gynecology; Visit Provider Obstetrics & Gynecology
DX: Z12.4 Encounter for screening for malignant neoplasm of cervix (principal)
CPT/HCPCS: 87624; 88175; G0145

== ENCOUNTER 2023-07-23 12:59 | Emergency (ER) | payer OTHER, SELFPAY ==
[2023-07-23 13:01] VITALS: BP 153/99; PULSE 100; RESP 18; TEMP 36; O2SAT 97
[2023-07-23 13:11] VITALS: BMI 55.0
--- NOTE | 2023-07-23 14:09 | EDS_ITS ---
HPI History of Present Illness Chief Complaint: Occup Expose Informant: patient Narrative Narrative: 32-year-old female presenting to the emergency room following an occupational exposure. Patient was in the delivery room and suction was being used to deliver the baby's head. Suction came off of body fluids manage to hit the patient's left eye. She was wearing protective eyewear. She states that she washed her eye using eyewash station. She does not wear contacts. Patient denies any eye pain currently. No change in vision. PFSH PFS Medical History Alcohol use Anemia Breast abscess Carpal tunnel syndrome Chronic hypertension affecting Gestational HTN Headache History of edema IUD strings lost LGA (large for gestational age) fetus Migraine headache Non-smoker Status post hysteroscopy Strain of left knee Supervision of high risk , antepartum Home Medications ferrous sulfate 325 mg (65 mg iron) tablet (Feosol) 325 mg PO DAILY 07/07/23 [History Last Taken Unknown] Allergy/AdvReac Type Severity Reaction Status Date / Time No Known Allergies Allergy Verified 07/23/23 13:01 Family History Unknown Cancer Father Cancer testicular germ cell Myocardial infarction Surgical History History of carpal tunnel release of both wrists History of incision and drainage History of tonsillectomy Status post section Social History adopted: No household members: spouse housing: house number of children: 1 current occupational status: employed 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 current occupational exposures/hazards: No pets and animals: Yes (Not managing litter box) pets and animals: cat(s) and dog(s) history of recent travel: No sexually active: Yes Smoking Status: Never smoker alcohol intake: never details: social substance use type: does not use well-balanced diet: daily or most days caffeine: Yes Type: carbonated beverages Number of servings: 1 eating out: 1-3 times/week during the past year weight has: increased > 10 lbs what type of physical activity do you participate in: walking frequency: 3-4 times per week duration: 15-30 minutes/day ashley/denominational: Religious seatbelt use: always do you feel safe at home: Yes additional social history: [employer]- to [employer] ROS ROS ED Constitutional Constitutional ED: Denies chills, fever(s) or weight loss Eyes Eyes: Denies blurry vision, change in vision or diplopia ENT ENT ED: Denies ear pain, rhinorrhea or sore throat Cardiovascular Cardiovascular: Denies chest pain, orthopnea, palpitations or racing heartbeat Respiratory/Chest Respiratory/Chest: Denies cough, dyspnea or orthopnea Gastrointestinal Gastrointestinal: Denies abdominal pain, diarrhea, nausea or vomiting Genitourinary Genitourinary ED: Denies dysuria, hematuria or urinary frequency Musculoskeletal Musculoskeletal: Denies arthralgias or myalgias Integumentary Denies abscess or rash Neurologic Neurologic: Denies headache(s) or weakness Psychiatric Psychiatric: Denies anxiety, depression, suicidal ideation or suicidal thoughts Endocrine Endocrinology: Denies polydipsia, polyphagia or polyuria Allergic/Immunologic Allergic/Immunologic ED: Denies mouth swelling, tongue swelling or urticaria EXAM Physical Exam Const Vital Signs: 07/23/23 13:01 Temperature 96.8 F L Temperature Source Temporal Pulse Rate 100 Respiratory Rate 18 Blood Pressure 153/99 H Blood Pressure Mean 117 Pulse Ox 97 Oxygen Delivery Method Room Air Positive well nourished and well developed General Appearance ED: well developed HEENT Reports normocephalic, head/scalp atraumatic and moist mucous membranes Eyes PERRL and EOMs intact bilaterally Neck no lymphadenopathy, supple and no JVD Resp normal respiratory effort and clear to auscultation bilaterally Cardio regular rate, regular rhythm and no murmurs GI normal to inspection, nondistended, normoactive bowel sounds and non-tender Palpation: soft Back/Spine no CVA tenderness and normal ROM Extremity normal to inspection General Extremety ED: Negative for edema General Extremity: Negative for edema Neuro oriented x3 and CN's II-XII intact bilaterally Sensorium / Orientation: alert Motor Exam: strength 5/5 throughout Psych mental status grossly normal Mood & Affect: Negative for depressed or tearful Skin no rashes or lesions noted and no wounds MDM MDM MDM Narrative Medical decision making narrative: Spoke with the patient. Occupational exposure protocol will be instituted. Currently declining prophylactic medications for HIV hepatitis C. She will follow-up with occupational health. Discharge Plan Triage Chief Complaint: Occup Expose Other Complaint: Eye Problem ED Provider: Pk Chong Dx/Rx/DC Orders Clinical Impression: Exposure to body fluid Instructions: ED Body Fluid Exposure Not ... Prescriptions: No Action ferrous sulfate [Feosol] 325 mg (65 mg iron) tablet 325 mg PO DAILY Primary Care Provider: Care Physician,No Primary Referrals: Care Physician,No Primary [Primary Care Provider] - Activity Restrictions/Additional Instructions: Please follow-up with employee health Disposition Disposition: Home, Self Care
[2023-07-23 16:20] LABS: HIV - WCH Non-Reactive (Nonreactive); Hepatitis B Surface Antibody Reactive; Hepatitis B Surface Antigen Non-Reactive (Nonreactive); Hepatitis C Antibody Non-Reactive (Nonreactive)
== END 2023-07-23 15:21 | disposition home or self-care (01) ==
LOC: ED 14:18 → EDREF 14:37 → ED 14:54 → EDREF 15:18 → ED 16:10
PROVIDERS: Emergency Provider Emergency Medicine; Visit Provider Emergency Medicine
DX: H57.9 Unspecified disorder of eye and adnexa (principal); Z77.21 Contact with and (suspected) exposure to potentially hazardous body fluids
CPT/HCPCS: 86703; 86706; 86803; 87340; 99282

== ENCOUNTER → 2023-08-07 | Outpatient (CLI) | payer OTHER, SELFPAY ==
[2023-08-07 09:01] LABS: Absolute Lymphocyte Count 2.04 X10^3/uL (0.83-4.51); Basophil# 0.03 X10^3/uL; Basophil% 0.5 % (0-1); Eosinophils% 1.5 % (0-5); Hemoglobin 12.5 g/dL (12.0-15.0); Lymphocyte # 2.04 X10^3/ul (0.83-4.51); Lymphocyte % 31.3 % (19-41); Mean Corp Hgb Conc 31.3 g/dL (32-36); Mean Corpuscular Hgb 26.8 pg (27.0-32.0); Mean Corpuscular Volume 85.7 fL (81-99); Mean Platelet Vol. 8.7 fl (6.2-12.0); Monocyte# 0.37 X10^3/uL; Monocyte% 5.7 % (0-10); NRBC Flagged by Analyzer 0 % (0-5); Neutrophil # 3.95 X10^3/uL (2.7-7.7); Neutrophil % 60.7 % (47-70); Platelet Count 268 K/mm3 (150-450); RBC Distribution Width CV 14.1 % (11.6-14.6); RBC Distribution Width SD 43.8 fl (35.1-43.9); Red Blood Count 4.67 M/mm3 (4.2-5.4); White Blood Count 6.5 K/mm3 (4.4-11.0)
[2023-08-07 09:48] LABS: Hemoglobin A1c 5.2 % (3.8-5.6)
[2023-08-07 09:56] LABS: ALB/GLOB Ratio 0.8 RATIO (0.9-2.4); AST(SGOT) 30 U/L (15-37); Alanine Aminotransfer ALT/SGPT 49 U/L (13-56); Albumin, Serum 3.4 g/dL (3.2-5.0); Alkaline Phosphatase 81 U/L (45-117); Anion Gap 7 (5-15); BUN 11 mg/dL (7-18); BUN/Creat Ratio 12.3 RATIO (10-20); Calcium,Total 8.9 mg/dL (8.5-10.1); Chloride 104 mmol/L (98-107); Cholesterol 150 mg/dL (200); Creatinine, Serum 0.89 mg/dL (0.55-1.02); EST Glomerular Filtration Rate 77 mL/min (>60); Est Glom Filt Rate - Afr Amer 93 mL/min (>60); Globulin 4.3 g/dL (2.2-4.2); Glucose 101 mg/dL (74-106); High Density Lipoprotein 33 mg/dL; Potassium 3.6 mmol/L (3.5-5.1); Protein, Total 7.7 g/dL (6.4-8.2); Sodium Level 138 mmol/L (136-145); Thyroid Stim Hormone (TSH) 3.46 uIU/mL (0.358-3.74); Triglycerides 218 mg/dL; Very Low Density Lipoprotein 44 mg/dL (5-40)
[2023-08-10 12:09] LABS: Vitamin D 1,25-Dihydroxy 36.1 pg/mL (24.8-81.5)
== END | disposition home or self-care (01) ==
LOC: LAB 07:58
PROVIDERS: Referring Provider Obstetrics & Gynecology; Visit Provider Obstetrics & Gynecology
DX: E66.01 Morbid (severe) obesity due to excess calories (principal); D64.9 Anemia, unspecified
CPT/HCPCS: 36415; 80053; 80061; 82652; 83036; 84443; 85025

== ENCOUNTER → 2023-08-09 | Outpatient (CLI) | payer OTHER, SELFPAY ==
--- NOTE | 2023-08-09 07:36 | EKG12_ITS ---
Test Reason : ROUTINE Blood Pressure : / mmHG Vent. Rate : 084 BPM Atrial Rate : 084 BPM P-R Int : 154 ms QRS Dur : 102 ms QT Int : 376 ms P-R-T Axes : 045 067 061 degrees QTc Int : 444 ms Normal sinus rhythm with sinus arrhythmia Normal ECG Confirmed by JUAN CARLOS BLAIR, JEANCARLOS ([id number]), video tape editor TIERA HODGE ([id number]) on 08/16/2023 7:28:10 AM Referred By: Molly Berger Confirmed By:MELINDA RANGEL MD
== END | disposition home or self-care (01) ==
LOC: PSN 07:35
PROVIDERS: Referring Provider Obstetrics & Gynecology; Visit Provider Obstetrics & Gynecology
DX: E66.01 Morbid (severe) obesity due to excess calories (principal)
CPT/HCPCS: 93005